=== PATIENT | male | born 1940 | race Caucasian/White ===

== ENCOUNTER → 2017-02-21 | Outpatient (CLI) | payer MEDICARE ==
[2014-05-16 12:59] VITALS: BP 135/72
[~2017-02-21] MED LIST: AMLO10TA2 PO; ASPI-482 PO; CHOL100017 PO; CITA40TA5 PO; CYAN10002 IM; DOCU100C28 PO; HYDR-2762 PO; Hydrocodone/Acetaminophen PO; LISI-334 PO; LOVA20TA2 PO; METF850T2 PO; PREG150C PO; TAMS0.4C2 PO
--- NOTE | 2017-02-21 13:51 | KCIC ---
History: Left shoulder pain and limited range of motion for 2 weeks. Comparison: None. Findings: AP external rotation and AP internal rotation views of the left shoulder. Evaluation for acute traumatic injury is limited by lack of 3rd view. No acute fracture or dislocation is identified. Mild acromioclavicular and glenohumeral degeneration is seen. Portions of pacemaker can be seen. Impression: Mild acromioclavicular and glenohumeral degeneration. Electronically signed by: Kartik Mejias MD (02/21/2017 1:48 PM) [place] [id number]
--- NOTE | 2017-02-21 13:54 | KCIC ---
History: Acute pain in left elbow. Comparison: None. Findings: AP and angulated lateral view of the left elbow. Evaluation is significantly limited secondary to lack of 3rd view as well as the angulation of the lateral view; additionally, the lateral view is not in typical 90 degree flexion. No displaced fracture is identified. No dislocation is appreciated. Evaluation for joint effusion is limited. Triceps tendon insertional enthesophyte is present. There is evidence of elbow joint degeneration with marginal osteophyte formation. Impression: 1. Limited examination. 2. No convincing acute osseous traumatic injury identified. 3. Degeneration. Electronically signed by: Kartik Mejias MD (02/21/2017 1:51 PM) [id number]
== END | disposition home or self-care (01) ==
LOC: KCIC 13:03
PROVIDERS: ATTEND Family Medicine
DX: M19.012 Primary osteoarthritis, left shoulder (principal); M19.022 Primary osteoarthritis, left elbow
CPT/HCPCS: 73030; 73070

== ENCOUNTER 2017-12-26 06:53 | Outpatient (CLI) | payer MEDICARE ==
[~2017-12-26] VITALS: Ht 188 cm; Wt 112.5 kg
[2017-12-26] VITALS (10 sets, daily range): BP systolic 114–147; BP diastolic 63–86
[~2017-12-26 06:53] MED LIST changes: -AMLO10TA2 PO; +AMLO10TA6 PO; -METF850T2 PO; +METF850T8 PO
[2017-12-26] MEDS ORDERED: 0.9 % SODIUM CHLORIDE 10 ML DISP.SYRIN. IV PRN (07:00)
[2017-12-26] MEDS ORDERED: LIDOCAINE 1% Multi-Dose 50 ML VIAL. ONE (07:07)
[2017-12-26] MEDS ORDERED: IODIXANOL 320 MG/ML 100 ML VIAL. ONE (07:07)
[2017-12-26] MEDS ORDERED: IV 1/2 NORMAL SALINE 1,000 ML IV SCH ×2 (07:16→09:08)
[2017-12-26] MEDS ORDERED: MAGN200T7 PO (07:29)
[2017-12-26] MEDS ORDERED: SOTA80TA48 PO (07:29)
[2017-12-26] MEDS ORDERED: RIVA15TA PO (07:29)
[2017-12-26] MEDS ORDERED: AMLO2.5T3 PO (07:29)
[2017-12-26 07:34] LABS: HEMATOCRIT 42.5 % (39.0-53.0); HEMOGLOBIN 14.4 g/dL (13.0-17.5); RED BLOOD COUNT 4.75 x10^6/uL (4.30-5.70); RED CELL DISTRIBUTION WIDTH 14.9 % (11.5-14.5); WHITE BLOOD COUNT 8.2 x10^3/uL (4.0-11.0)
[2017-12-26 07:38] LABS: CALCIUM 9.1 mg/dL (8.5-10.1); GFR 32.5; POTASSIUM 4.3 mmol/L (3.5-5.1)
[2017-12-26 08:11] LABS: PROTHROMBIN TIME PATIENT 12.8 SEC (11.7-14.0)
[2017-12-26] MEDS ORDERED: MIDAZOLAM HCL/PF 2 MG/2 ML VIAL. ONE (08:17)
[2017-12-26] MEDS ORDERED: fentaNYL PF VIAL 100 MCG/2 ML VIAL ONE (08:17)
[2017-12-26] MEDS ORDERED: LIDOCAINE 1% Multi-Dose 50 ML VIAL. INJ ONE (09:00)
[2017-12-26] MEDS ORDERED: MIDAZOLAM HCL/PF 2 MG/2 ML VIAL. IV ONE (09:00)
[2017-12-26] MEDS ORDERED: fentaNYL PF VIAL 100 MCG/2 ML VIAL IV ONE (09:00)
[2017-12-26] MEDS ORDERED: IODIXANOL 320 MG/ML 100 ML VIAL. IART ONE (09:00)
--- NOTE | 2017-12-26 09:08 | PDOC ---
MODERATE SEDATION ASSESSMENT RISKS/ALTERNATIVES Risks/Alternatives Risks and alternatives of this type of sedation and procedure discussed with: RISK/ALTERNATIVES: Patient H & P ON CHART H & P H & P on chart and reviewed for co-morbid conditions and appropriate labs. H&P ON CHART: Yes STATUS PREG STATUS ASSESSED: N/A MEDS/ALLERGIES REVIEWED Meds/Allergies Reviewed Medications and Allergies including time and route of recently administered narcotics and sedatives. MEDS/ALLERGIES REVIEWED: Yes ASA RATING ASA RATING: III AIRWAY ASSESSMENT Airway Assessment Airway patency, oral function limitations, presence of caps, crowns, dentures, partials, and ability to extend neck assessed. AIRWAY ASSESSMENT: Yes MALLAMPATI SCORE MALLAMPATI SCORE: II PRE-SEDATION ASSESSMENT PRE-SEDATION ASSESSMENT: Yes ADONIS BARRY MD Dec 26, 2017 09:08
[2017-12-26] MEDS ORDERED: NITROGLYCERIN SUBLINGUAL 0.4 MG BOTTLE OF 25. SL PRN (09:15)
--- NOTE | 2017-12-26 12:54 | CARD ---
MR#: [id number] Date of Study: 12/26/2017 Ordering Physician: ADONIS BARRY, Referring Physician: ADONIS BARRY Tech: RT Micky (R) APPROVED REPORT Patient StatusOUT-PATIENT Slunk Skinner: Guera Castaneda RT (R) Procedure(s) performed: Aortogram with bilateral lower extremity runoff Moderate sedation: 24 Minutes INDICATION FOR PROCEDURE The indication(s) include : Claudication and abnormal arterial duplex scan. PROCEDURE NARRATIVE After explaining the risks, benefits and alternative options, informed consent was obtained from olga lidia ent. Patient was brought to the cardiac [employer] and his left groin was prepped and draped in the usu al fashion. 20 mL of 2% lidocaine was infiltrated into the skin and subcutaneous tissues for local an esthesia. Arterial access was obtained in the left common femoral artery and 5 [place] sheath was inse rted. 5 [place] pigtail catheter was used to perform aortogram with bilateral lower extremity runoff. Contrast injections were performed through the sheath in the left groin for better visualization of l eft below the knee vessels. Patient tolerated the procedure well. Hemostasis in the left groin was ac hieved using mynx closure device. There were no immediate complications. FINDINGS 1. No significant stenosis involving the distal descending aorta 2. No significant stenosis involving bilateral common and external iliac arteries 3. No significant stenosis involving bilateral common femoral and superficial femoral arteries 4. No significant stenosis involving bilateral popliteal arteries. 5. There is three vessel runoff bilaterally. The right anterior tibial artery showed tandem 90% sten oses in the proximal to midsegment. The left anterior tibial artery showed 90% stenosis in the proxim al and mid segments. Conclusion Below the knee peripheral artery disease involving bilateral anterior tibial arteries as described ab ove without any major vascular stenosis. Recommendations Vascular risk factor modification and regular exercise regimen Signed by : Adonis Barry, Electronically Approved : 12/26/2017 12:53:34
== END 2017-12-26 13:38 | disposition home or self-care (01) ==
LOC: CCL 06:53
PROVIDERS: ATTEND Internal Medicine Cardiovascular Disease
DX: I70.213 Atherosclerosis of native arteries of extremities with intermittent claudication, bilateral legs (principal); Z88.0 Allergy status to penicillin; I25.10 Atherosclerotic heart disease of native coronary artery without angina pectoris; I49.5 Sick sinus syndrome; I48.91 Unspecified atrial fibrillation; Z85.828 Personal history of other malignant neoplasm of skin; I12.9 Hypertensive chronic kidney disease with stage 1 through stage 4 chronic kidney disease, or unspecified chronic kidney disease; E11.22 Type 2 diabetes mellitus with diabetic chronic kidney disease; N18.9 Chronic kidney disease, unspecified; Z96.651 Presence of right artificial knee joint; N40.0 Benign prostatic hyperplasia without lower urinary tract symptoms; Z95.5 Presence of coronary angioplasty implant and graft; Z98.890 Other specified postprocedural states; Z95.0 Presence of cardiac pacemaker; Z98.42 Cataract extraction status, left eye; Z98.41 Cataract extraction status, right eye; Z96.1 Presence of intraocular lens; Z79.899 Other long term (current) drug therapy; Z79.84 Long term (current) use of oral hypoglycemic drugs
CPT/HCPCS: 36200; 36415; 75630; 80048; 85027; 85610; 99152; 99153; C1713; C1769; C1892; J1644; J2250; J3010; Q9967; G0269

== ENCOUNTER 2018-06-05 13:11 | Inpatient (IN) | payer MEDICARE ==
[~2018-06-05] VITALS: Ht 193 cm; Wt 119.5 kg
[~2018-06-05 13:11] MED LIST changes: -AMLO10TA6 PO; +AMLO10TA8 PO; +AMLO2.5T5 PO; -HYDR-2762 PO; +HYDR-2765 PO; +MAGN200T7 PO; +RIVA15TA PO; +SOTA80TA48 PO
[2018-06-05 14:15] LABS: BASO % 1 % (0-3); EOS # 0.3 x10^3/uL (0.0-0.7); EOS % 3 % (0-3); HEMATOCRIT 46.4 % (39.0-53.0); HEMOGLOBIN 15.2 g/dL (13.0-17.5); LYMPH # 1.3 x10^3/uL (1.0-4.8); LYMPH % 16 % (24-48); MEAN CORPUSCULAR HEMOGLOBIN 29 pg (25-35); MEAN CORPUSCULAR HGB CONC 33 g/dL (31-37); MEAN CORPUSCULAR VOLUME 88 fL (79-100); MONO # 0.8 x10^3/uL (0.0-1.1); MONO % 9 % (0-9); NEUT # 6.1 x10^3uL (1.8-7.7); NEUT % 72 % (31-73); PLATELET COUNT 210 x10^3/uL (140-400); RED BLOOD COUNT 5.25 x10^6/uL (4.30-5.70); RED CELL DISTRIBUTION WIDTH 13.6 % (11.5-14.5); WHITE BLOOD COUNT 8.5 x10^3/uL (4.0-11.0)
--- NOTE | 2018-06-05 14:20 | PHYS DOC ---
Past Medical History Past Medical History: A-Fib, CAD Past Surgical History: Pacemaker Additional Past Surgical Histo: PTCA Alcohol Use: None Adult General Chief Complaint Chief Complaint: ABDOMINAL PAIN HPI HPI Patient is a 77-year-old male who presents to the emergency department for evaluation of abdominal discomfort, and abdominal bloating and distention. He states he had some vomiting on Monday night, which progressed to diarrhea, which was intense Monday, and Monday. He states he began feeling better, but not completely resolved, with regard to his diarrhea, yesterday afternoon and today. However he began experiencing abdominal pain and bloating over the past 4 hours. Other than his initial onset of symptoms on Monday he has not had any vomiting. He has not had any black or bloody stools, and denies any recent travel or antibiotic use. There are no alleviating or exacerbating factors to his symptoms otherwise. Review of Systems Review of Systems Constitutional: Denies fever or chills [] Eyes: Denies change in visual acuity, redness, or eye pain [] HENT: Denies nasal congestion or sore throat [] Respiratory: Denies cough or shortness of breath [] Cardiovascular: The patient denies any shortness of breath, chest pain, palpitations, or orthopnea [] GI: No additional information not addressed in HPI [] : Denies dysuria or hematuria [] Musculoskeletal: Denies back pain or joint pain [] Integument: Denies rash or skin lesions [] Neurologic: Denies headache, focal weakness or sensory changes [] Endocrine: Denies polyuria or polydipsia [] All other systems were reviewed and found to be within normal limits, except as documented in this note. Current Medications Current Medications Current Medications Medications (Trade) Dose Ordered Sig/Gerardo Start Time Stop Time Status Last Admin Dose Admin Dextrose/Lactated Ringer's 1,000 ml @ 125 mls/hr 1X ONCE 06/05/18 16:00 06/05/18 23:59 Sodium Chloride 500 ml @ 500 mls/hr 1X ONCE 06/05/18 14:45 06/05/18 15:44 DC 06/05/18 14:47 500 MLS/HR Allergies Allergies Allergies Coded Allergies Type Severity Reaction Last Updated Verified Penicillins Allergy Intermediate Swelling 05/14/14 Yes Physical Exam Physical Exam PHYSICAL EXAM: CONSTITUTIONAL: Well developed, well nourished HEAD: normocephalic, atraumatic EENT: PERRL, EOMI. Conjunctivae normal color, sclerae non-icteric; moist mucous membranes. NECK: Supple, non-tender; no meningismus. LUNGS: Lungs CTA, breathing even and unlabored. Normal air movement. HEART: Regular rate and rhythm, no murmur CHEST: No deformity; non-tender ABDOMEN: The abdomen is soft, and mildly distended, with diffuse tenderness to palpation, and somewhat high-pitched bowel sounds, which might be consistent with a bowel obstruction, there is no rebound or guarding, no masses or bruits. EXTREM: Normal ROM; no deformity, no calf tenderness. Normal pulses palpable in all extremities. There is no pedal edema. SKIN: No rash; no diaphoresis NEURO: Alert; normal speech and cognition; CN's grossly intact; strength grossly intact without focal deficit. BACK: No CVA TTP. Current Patient Data Vital Signs Vital Signs Date Time Temp Pulse Resp B/P (MAP) Pulse Ox O2 Delivery O2 Flow Rate FiO2 06/05/18 13:50 97.9 60 18 162/80 (107) 96 Room Air 97.9 Lab Values Laboratory Tests Test 06/05/18 14:03 White Blood Count 8.5 x10^3/uL (4.0-11.0) Red Blood Count 5.25 x10^6/uL (4.30-5.70) Hemoglobin 15.2 g/dL (13.0-17.5) Hematocrit 46.4 % (39.0-53.0) Mean Corpuscular Volume 88 fL (79-100) Mean Corpuscular Hemoglobin 29 pg (25-35) Mean Corpuscular Hemoglobin Concent 33 g/dL (31-37) Red Cell Distribution Width 13.6 % (11.5-14.5) Platelet Count 210 x10^3/uL (140-400) Neutrophils (%) (Auto) 72 % (31-73) Lymphocytes (%) (Auto) 16 % (24-48) L Monocytes (%) (Auto) 9 % (0-9) Eosinophils (%) (Auto) 3 % (0-3) Basophils (%) (Auto) 1 % (0-3) Neutrophils # (Auto) 6.1 x10^3uL (1.8-7.7) Lymphocytes # (Auto) 1.3 x10^3/uL (1.0-4.8) Monocytes # (Auto) 0.8 x10^3/uL (0.0-1.1) Eosinophils # (Auto) 0.3 x10^3/uL (0.0-0.7) Basophils # (Auto) 0.0 x10^3/uL (0.0-0.2) Prothrombin Time 21.2 SEC (11.7-14.0) H Prothrombin Time INR 1.9 (0.8-1.1) H PTT 32 SEC (24-38) Sodium Level 137 mmol/L (136-145) Potassium Level 4.4 mmol/L (3.5-5.1) Chloride Level 100 mmol/L (98-107) Carbon Dioxide Level 26 mmol/L (21-32) Anion Gap 11 (6-14) Blood Urea Nitrogen 24 mg/dL (8-26) Creatinine 1.9 mg/dL (0.7-1.3) H Estimated GFR (Cockcroft-Gault) 34.5 BUN/Creatinine Ratio 13 (6-20) Glucose Level 230 mg/dL (70-99) H Lactic Acid Level 1.7 mmol/L (0.4-2.0) Calcium Level 8.6 mg/dL (8.5-10.1) Total Bilirubin 0.7 mg/dL (0.2-1.0) Aspartate Amino Transferase (AST) 19 U/L (15-37) Alanine Aminotransferase (ALT) 20 U/L (16-63) Alkaline Phosphatase 112 U/L (46-116) Total Protein 6.7 g/dL (6.4-8.2) Albumin 2.8 g/dL (3.4-5.0) L Albumin/Globulin Ratio 0.7 (1.0-1.7) L Lipase 92 U/L (73-393) Laboratory Tests 06/05/18 14:03 Laboratory Tests 06/05/18 14:03 EKG EKG [Atrial paced rhythm at a rate of 60 beats for minute, left axis deviation, normal intervals. There are no acute ischemic ST/T changes.] Radiology/Procedures Radiology/Procedures [PROCEDURE: CT ABDOMEN PELVIS WO CONTRAST PQRS Compliance Statement: One or more of the following individualized dose reduction techniques were utilized for this examination: 1. Automated exposure control 2. Adjustment of the mA and/or kV according to patient size 3. Use of iterative reconstruction technique CT ABDOMEN PELVIS WO CONTRAST Clinical Indication: abd pain, bloating, possible SBO Comparison: None. Technique: Helical CT imaging of the abdomen and pelvis is performed without IV or oral contrast. Findings: Evaluation of solid organs and bowel is limited without oral and IV contrast, decreasing sensitivity for detection of pathology. Cardiac pacer wires are partially seen. Cardiac size normal. Calcified granuloma posterior right lower lobe. Mainly in the periphery of the bilateral lung bases there are scattered reticular nodular opacities. There is no consolidation. The liver, gallbladder, spleen, pancreas, adrenal glands, and abdominal aorta caliber are normal. Kidneys are atrophic. No hydronephrosis. Stomach unremarkable. Mid small bowel is moderately dilated and air and fluid-filled. Mild induration of the associated mesentery. Distal small bowel is relatively normal caliber. Point of transition appears to involve the lower central abdomen, coronal image 30. Adhesions or an internal hernia are considerations. There is no colon wall thickening. The appendix is normal. No abdominal adenopathy. Urinary bladder is not well distended, otherwise normal. Prostate is enlarged. No pelvic free fluid. Degenerative arthropathy of the hips. Degenerative spondylosis of the lumbar spine. IMPRESSION: 1. Mid small bowel obstruction as described above. 2. Scattered reticular nodular opacities mainly in the periphery of the bilateral lung bases, suggestive of nonspecific bronchiolitis. 3. Prostate is enlarged.] Course & Med Decision Making Course & Med Decision Making Pertinent Labs and Imaging studies reviewed. (See chart for details) [4:10 PM: The patient's condition remained stable. He has had no vomiting in the emergency department. He has had no prior abdominal surgeries, raising the possibility of an internal hernia. I discussed case with Gen. surgery on-call, who will evaluate the patient and Dr. Frazier, on-call for the patient's PCP will admit the patient.] Dragon Disclaimer Dragon Disclaimer This electronic medical record was generated, in whole or in part, using a voice recognition dictation system. Departure Departure Impression: Primary Impression: Small bowel obstruction Disposition: ADMITTED INPATIENT Admitting Physician: Sari Frazier Condition: STABLE Referrals: Fredy PYLE MD (PCP) KELLY SAEZ MD Jun 05, 2018 14:20
[2018-06-05 14:27] LABS: PROTHROMBIN TIME PATIENT 21.2 SEC (11.7-14.0)
[2018-06-05 14:30] LABS: CALCIUM 8.6 mg/dL (8.5-10.1); CREATININE 1.9 mg/dL (0.7-1.3); GFR 34.5; POTASSIUM 4.4 mmol/L (3.5-5.1)
[2018-06-05 14:34] LABS: ALBUMIN 2.8 g/dL (3.4-5.0); ALBUMIN/GLOBULIN RATIO 0.7 (1.0-1.7); TOTAL BILIRUBIN 0.7 mg/dL (0.2-1.0); TOTAL PROTEIN 6.7 g/dL (6.4-8.2)
[2018-06-05] MEDS ORDERED: IV NORMAL SALINE 500ML BAG 500 ML IV ONE (14:45)
--- NOTE | 2018-06-05 14:52 | EKG ---
[facility] [address] [place] [address] Test Date: 2018-06-05 Test Time: 14:14:15 Pat Name: CHRISTOPHER BALLARD Department: Room: Gender: M Pipelayer: : 1940 Requested By: KELLY SAEZ Order Number: [id number] Reading MD: Andrés Dunbar MD Measurements Intervals Farrell Rate: 60 P: -62 WY: 164 QRS: -24 QRSD: 74 T: 42 QT: 418 QTc: 422 Interpretive Statements PROBABLE SINUS RHYTHM LOW VOLTAGE NON-SPECIFIC ST/T CHANGES Electronically Signed On 06-14-2018 9:29:59 CDT by Andrés Dunbar MD
--- NOTE | 2018-06-05 15:16 | RAD ---
PQRS Compliance Statement: One or more of the following individualized dose reduction techniques were utilized for this examination: 1. Automated exposure control 2. Adjustment of the mA and/or kV according to patient size 3. Use of iterative reconstruction technique CT ABDOMEN PELVIS WO CONTRAST Clinical Indication: abd pain, bloating, possible SBO Comparison: None. Technique: Helical CT imaging of the abdomen and pelvis is performed without IV or oral contrast. Findings: Evaluation of solid organs and bowel is limited without oral and IV contrast, decreasing sensitivity for detection of pathology. Cardiac pacer wires are partially seen. Cardiac size normal. Calcified granuloma posterior right lower lobe. Mainly in the periphery of the bilateral lung bases there are scattered reticular nodular opacities. There is no consolidation. The liver, gallbladder, spleen, pancreas, adrenal glands, and abdominal aorta caliber are normal. Kidneys are atrophic. No hydronephrosis. Stomach unremarkable. Mid small bowel is moderately dilated and air and fluid-filled. Mild induration of the associated mesentery. Distal small bowel is relatively normal caliber. Point of transition appears to involve the lower central abdomen, coronal image 30. Adhesions or an internal hernia are considerations. There is no colon wall thickening. The appendix is normal. No abdominal adenopathy. Urinary bladder is not well distended, otherwise normal. Prostate is enlarged. No pelvic free fluid. Degenerative arthropathy of the hips. Degenerative spondylosis of the lumbar spine. IMPRESSION: 1. Mid small bowel obstruction as described above. 2. Scattered reticular nodular opacities mainly in the periphery of the bilateral lung bases, suggestive of nonspecific bronchiolitis. 3. Prostate is enlarged. Electronically signed by: Roger Cat MD (06/05/2018 3:13 PM) [id number]
[2018-06-05] MEDS ORDERED: IV DEXTROSE 5%-LACT RINGERS 1,000 ML IV ONE (16:00)
[2018-06-05 16:43] LABS: BILIRUBIN,URINE SMALL (NEG); CLARITY,URINE CLOUDY; COLOR,URINE AMBER; NITRITE,URINE NEGATIVE (NEG); PROTEIN,URINE NEGATIVE (NEG-TRACE)
[2018-06-05 16:53] LABS: SQUAMOUS EPITHELIAL CELL,UR FEW /LPF
[2018-06-05 16:54] LABS: HYALINE CASTS, URINE MANY /HPF
[2018-06-05 16:55] LABS: BACTERIA,URINE FEW /HPF (0-FEW); RBC,URINE 0 /HPF (0-2); WBC,URINE 20-40 /HPF (0-4)
[2018-06-05 18:00] VITALS: BP 160/68
[2018-06-05] MEDS ORDERED: DEXTROSE 50% 25 GM / 50ML DISP.SYRIN. IV PRN (21:45)
[2018-06-05] MEDS: IV NORMAL SALINE 1000ML BAG 1,000 ML IV SCH (22:42)
[2018-06-05 23:00] VITALS: BP 138/61
[2018-06-06 03:00] VITALS: BP 140/72
--- NOTE | 2018-06-06 06:40 | NUR ---
The patient, CHRISTOPHER BALLARD, 77 y/o, M was admitted by THIERNO ASCENCIO MD. Pt. was admitted to floor before this nurse came into shift. Assessment and admission questions done at 1999. Pt. was given written information regarding hospital policies, unit procedures and contact persons. Bag of clothing left with pt. in room. Call light within reach, bed low. Will continue to monitor.
[2018-06-06 07:31] VITALS: BP 115/61
[2018-06-06] MEDS: INSULIN LISPRO 300 UNITS/3 ML INSULN.PEN. SQ SCH ×3 (08:00→17:13)
--- NOTE | 2018-06-06 08:14 | PDOC1 ---
History and Physical Date of Admission Date of Admission 06/05/18 Identification/Chief Complaint Chief Complaint Abdominal pain Source Source: Patient History of Present Illness History of Present Illness Pt says that he wasn't really feeling good all week last week. Monday night had a little bit of nausea. Went to the bathroom and felt like he was going to throw up, ended up having diarrhea which lasted all weekend. Monday was feeling a little bit better. Got a fish sandwich from [employer] and 2 hours later pt started having significant abdominal pain. Yesterday pt was supposed to get his pacemaker interrogated but he felt entirely too weak. Called the office and was told to come to the ER for evaluation. Pt's imaging showed SBO. Pt says that he is feeling better today. 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 Last BM was on Monday. Passed a little bit of gas last night. Still feeling pretty weak, but feels that he will be able to go home once discharged. Uses a walker at home. Past Medical History Cardiovascular: AFIB, CAD, HTN, Hyperlipidemia Pulmonary: No pertinent hx GI: No pertinent hx Heme/Onc: No pertinent hx Hepatobiliary: No pertinent hx Psych: No pertinent hx Rheumatologic: No pertinent hx Infectious disease: No pertinent hx ENT: No pertinent hx Renal/: Chronic renal insuff, Benign prostatic enlarg. Endocrine: Diabetes Dermatology: No pertinent hx Past Surgical History Past Surgical History: Pacemaker, Cataract Removal, Total knee replacement, Other (stent placement, laminectomy, lipoma excision) Family History Family History: Cancer Social History Smoke: No ALCOHOL: none Drugs: None Current Problem List Problem List Problems Medical Problems: (1) Small bowel obstruction Status: Acute Current Medications Current Medications Current Medications Medications (Trade) Dose Ordered Sig/Gerardo Start Time Stop Time Status Last Admin Dose Admin Dextrose (Dextrose 50%-Water Syringe) 12.5 gm PRN Q15MIN PRN 06/05/18 21:45 Dextrose/Lactated Ringer's 1,000 ml @ 125 mls/hr 1X ONCE 06/05/18 16:00 06/05/18 23:59 DC 06/05/18 16:48 125 MLS/HR Insulin Human Lispro (HumaLOG) 0-5 UNITS TIDWMEALS 06/06/18 08:00 Sodium Chloride 1,000 ml @ 80 mls/hr [id number] 06/05/18 20:30 06/05/18 22:42 80 MLS/HR Allergies Allergies Allergies Coded Allergies Type Severity Reaction Last Updated Verified Penicillins Allergy Intermediate Swelling 05/14/14 Yes ROS Review of System CONSTITUTIONAL: No fever or chills EYES: No recent changes SKIN: No rash or itching CARDIOVASCULAR: No chest pain, syncope, palpitations, or edema RESPIRATORY: No SOB or cough GASTROINTESTINAL: see HPI NEUROLOGICAL: No headaches or weakness ENDOCRINE: No cold or heat intolerance GENITOURINARY: No urgency or frequency of urination MUSCULOSKELETAL: No back pain or joint pain LYMPHATICS: No enlarged lymph nodes PSYCHIATRIC: No anxiety or depression Physical Exam Physical Exam GEN.: No apparent distress. Alert and oriented. HEENT: Head is normocephalic, atraumatic NECK: Supple. LUNGS: Clear to auscultation. HEART: irregularly irregular, S1, S2 present. Peripheral pulses intact ABDOMEN: Soft, mild tenderness throughout, distended. Positive bowel sounds. EXTREMITIES: Without any cyanosis. NEUROLOGIC: Normal speech, normal tone PSYCHIATRIC: Normal affect, normal mood. SKIN: No ulcerations Vitals Vitals Vital Signs Date Time Temp Pulse Resp B/P (MAP) Pulse Ox O2 Delivery O2 Flow Rate FiO2 06/06/18 07:31 98.3 61 20 115/61 (79) 96 Room Air 98.3 Labs Labs Laboratory Tests Test 06/05/18 14:03 06/05/18 16:30 06/05/18 21:20 White Blood Count 8.5 x10^3/uL (4.0-11.0) Red Blood Count 5.25 x10^6/uL (4.30-5.70) Hemoglobin 15.2 g/dL (13.0-17.5) Hematocrit 46.4 % (39.0-53.0) Mean Corpuscular Volume 88 fL (79-100) Mean Corpuscular Hemoglobin 29 pg (25-35) Mean Corpuscular Hemoglobin Concent 33 g/dL (31-37) Red Cell Distribution Width 13.6 % (11.5-14.5) Platelet Count 210 x10^3/uL (140-400) Neutrophils (%) (Auto) 72 % (31-73) Lymphocytes (%) (Auto) 16 % (24-48) Monocytes (%) (Auto) 9 % (0-9) Eosinophils (%) (Auto) 3 % (0-3) Basophils (%) (Auto) 1 % (0-3) Neutrophils # (Auto) 6.1 x10^3uL (1.8-7.7) Lymphocytes # (Auto) 1.3 x10^3/uL (1.0-4.8) Monocytes # (Auto) 0.8 x10^3/uL (0.0-1.1) Eosinophils # (Auto) 0.3 x10^3/uL (0.0-0.7) Basophils # (Auto) 0.0 x10^3/uL (0.0-0.2) Prothrombin Time 21.2 SEC (11.7-14.0) Prothromb Time International Ratio 1.9 (0.8-1.1) Activated Partial Thromboplast Time 32 SEC (24-38) Sodium Level 137 mmol/L (136-145) Potassium Level 4.4 mmol/L (3.5-5.1) Chloride Level 100 mmol/L (98-107) Carbon Dioxide Level 26 mmol/L (21-32) Anion Gap 11 (6-14) Blood Urea Nitrogen 24 mg/dL (8-26) Creatinine 1.9 mg/dL (0.7-1.3) Estimated GFR (Cockcroft-Gault) 34.5 BUN/Creatinine Ratio 13 (6-20) Glucose Level 230 mg/dL (70-99) Lactic Acid Level 1.7 mmol/L (0.4-2.0) Calcium Level 8.6 mg/dL (8.5-10.1) Total Bilirubin 0.7 mg/dL (0.2-1.0) Aspartate Amino Transf (AST/SGOT) 19 U/L (15-37) Alanine Aminotransferase (ALT/SGPT) 20 U/L (16-63) Alkaline Phosphatase 112 U/L (46-116) Total Protein 6.7 g/dL (6.4-8.2) Albumin 2.8 g/dL (3.4-5.0) Albumin/Globulin Ratio 0.7 (1.0-1.7) Lipase 92 U/L (73-393) Urine Collection Type Unknown Urine Color Katya Urine Clarity Cloudy Urine pH 5.0 Urine Specific [place] 1.025 Urine Protein Negative mg/dL (NEG-TRACE) Urine Glucose (UA) 100 mg/dL (NEG) Urine Ketones (Stick) Trace mg/dL (NEG) Urine Blood Negative (NEG) Urine Nitrite Negative (NEG) Urine Bilirubin Small (NEG) Urine Urobilinogen Dipstick 1.0 mg/dL (0.2 mg/dL) Urine Leukocyte Esterase Small (NEG) Urine RBC 0 /HPF (0-2) Urine WBC 20-40 /HPF (0-4) Urine Squamous Epithelial Cells Few /LPF Urine Bacteria Few /HPF (0-FEW) Urine Hyaline Casts Many /HPF Urine Mucus Marked /LPF Glucose (Fingerstick) 226 mg/dL (70-99) Laboratory Tests Test 06/05/18 14:03 06/05/18 16:30 06/05/18 21:20 White Blood Count 8.5 x10^3/uL (4.0-11.0) Red Blood Count 5.25 x10^6/uL (4.30-5.70) Hemoglobin 15.2 g/dL (13.0-17.5) Hematocrit 46.4 % (39.0-53.0) Mean Corpuscular Volume 88 fL (79-100) Mean Corpuscular Hemoglobin 29 pg (25-35) Mean Corpuscular Hemoglobin Concent 33 g/dL (31-37) Red Cell Distribution Width 13.6 % (11.5-14.5) Platelet Count 210 x10^3/uL (140-400) Neutrophils (%) (Auto) 72 % (31-73) Lymphocytes (%) (Auto) 16 % (24-48) Monocytes (%) (Auto) 9 % (0-9) Eosinophils (%) (Auto) 3 % (0-3) Basophils (%) (Auto) 1 % (0-3) Neutrophils # (Auto) 6.1 x10^3uL (1.8-7.7) Lymphocytes # (Auto) 1.3 x10^3/uL (1.0-4.8) Monocytes # (Auto) 0.8 x10^3/uL (0.0-1.1) Eosinophils # (Auto) 0.3 x10^3/uL (0.0-0.7) Basophils # (Auto) 0.0 x10^3/uL (0.0-0.2) Prothrombin Time 21.2 SEC (11.7-14.0) Prothromb Time International Ratio 1.9 (0.8-1.1) Activated Partial Thromboplast Time 32 SEC (24-38) Sodium Level 137 mmol/L (136-145) Potassium Level 4.4 mmol/L (3.5-5.1) Chloride Level 100 mmol/L (98-107) Carbon Dioxide Level 26 mmol/L (21-32) Anion Gap 11 (6-14) Blood Urea Nitrogen 24 mg/dL (8-26) Creatinine 1.9 mg/dL (0.7-1.3) Estimated GFR (Cockcroft-Gault) 34.5 BUN/Creatinine Ratio 13 (6-20) Glucose Level 230 mg/dL (70-99) Lactic Acid Level 1.7 mmol/L (0.4-2.0) Calcium Level 8.6 mg/dL (8.5-10.1) Total Bilirubin 0.7 mg/dL (0.2-1.0) Aspartate Amino Transf (AST/SGOT) 19 U/L (15-37) Alanine Aminotransferase (ALT/SGPT) 20 U/L (16-63) Alkaline Phosphatase 112 U/L (46-116) Total Protein 6.7 g/dL (6.4-8.2) Albumin 2.8 g/dL (3.4-5.0) Albumin/Globulin Ratio 0.7 (1.0-1.7) Lipase 92 U/L (73-393) Urine Collection Type Unknown Urine Color Katya Urine Clarity Cloudy Urine pH 5.0 Urine Specific [place] 1.025 Urine Protein Negative mg/dL (NEG-TRACE) Urine Glucose (UA) 100 mg/dL (NEG) Urine Ketones (Stick) Trace mg/dL (NEG) Urine Blood Negative (NEG) Urine Nitrite Negative (NEG) Urine Bilirubin Small (NEG) Urine Urobilinogen Dipstick 1.0 mg/dL (0.2 mg/dL) Urine Leukocyte Esterase Small (NEG) Urine RBC 0 /HPF (0-2) Urine WBC 20-40 /HPF (0-4) Urine Squamous Epithelial Cells Few /LPF Urine Bacteria Few /HPF (0-FEW) Urine Hyaline Casts Many /HPF Urine Mucus Marked /LPF Glucose (Fingerstick) 226 mg/dL (70-99) VTE Prophylaxis Ordered VTE Prophylaxis Devices: No VTE Pharmacological Prophylaxi: Yes Assessment/Plan Assessment/Plan Pt is a 77yo CM admitted for SBO 1)SBO- currently NPO. Pt improving, will advance to [facility]. 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 Pt's Metformin was stopped several months ago. Has SSI available currently. 7)Acute on CKD- Cr increased from last available Cr in hospital. Will review clinic records as well. Receiving IVF hydration 8)BPH- pt continued on flomax 9)Abnormal U/A- urine culture pending. Will start pt on Macrobid 10)Abnormal lung findings on CT- suggests bronchiolitis but pt has not been having any respiratory symptoms. Will have pt f/u with Dr. Hodge for this 11)PEM- moderate THIERNO ASCENCIO MD Jun 06, 2018 08:14
[2018-06-06] MEDS ORDERED: NITROFURANTOIN MONOHYD/M-CRYST 100 MG CAPSULE. PO SCH (09:00)
[2018-06-06] MEDS: DOCUSATE SODIUM 100 MG CAPSULE. PO SCH (09:23)
[2018-06-06] MEDS: SOTALOL 80 MG TABLET. PO SCH (09:25)
[2018-06-06] MEDS: amLODIPine BESYLATE 5 MG TABLET PO SCH (09:25)
[2018-06-06] MEDS: IV NORMAL SALINE 1000ML BAG 1,000 ML IV SCH ×2 (09:26→21:06)
--- NOTE | 2018-06-06 09:33 | RAD ---
Abdomen, 2 views, 06/06/2018: HISTORY: Small bowel obstruction There is moderate gaseous distention of multiple small bowel loops in the central abdomen. A small amount of gas is present in nondilated colon. The findings suggest ongoing small bowel obstruction, similar to that seen on yesterday's CT study. No free air seen in the abdomen. There is no evidence of organomegaly. Prominent basilar lung markings may reflect fibrosis or infiltrate. Moderate multilevel degenerative changes are evident in the spine. IMPRESSION: Ongoing small bowel obstruction. Electronically signed by: Jorge Ritchie MD (06/06/2018 9:30 AM) [facility]
--- NOTE | 2018-06-06 09:38 | PDOC2 ---
CONSULT Date of Consult Date of Consult DATE: 06/06/18 TIME: 09:33 Reason for Consult Reason for Consult: Abdominal pain and distention Referring Physician Referring Physician: Freddie Identification/Chief Complaint Chief Complaint Abdominal pain and feeling bloated Source Source: Patient History of Present Illness Reason for Visit: 77-year-old male who developed diarrhea 4 days ago quite profuse for 2 days and on the third day no longer was having bowel movements felt much better. Then ate at [employer] and that evening developed abdominal bloating distention and pain denies any vomiting. Came to the emergency Department secondary to worsening abdominal pain. This morning he states is feeling a little better less distended has been passing gas no bowel movement still no vomiting. Past Medical History Cardiovascular: AFIB, CAD, HTN, Hyperlipidemia Pulmonary: No pertinent hx GI: No pertinent hx Heme/Onc: No pertinent hx Hepatobiliary: No pertinent hx Psych: No pertinent hx Rheumatologic: No pertinent hx Infectious disease: No pertinent hx ENT: No pertinent hx Renal/: Chronic renal insuff, Benign prostatic enlarg. Endocrine: Diabetes Dermatology: No pertinent hx Past Surgical History Past Surgical History: Pacemaker, Cataract Removal, Total knee replacement, Other (stent placement, laminectomy, lipoma excision) Family History Family History: Cancer Social History No ALCOHOL: none Drugs: None Current Problem List Problem List Problems Medical Problems: (1) Small bowel obstruction Status: Acute Current Medications Current Medications Current Medications Sodium Chloride 500 ml @ 500 mls/hr 1X ONCE IV Last administered on at 14:47; Start 06/05/18 at 14:45; Stop 06/05/18 at 15:44; Status DC Dextrose/Lactated Ringer's 1,000 ml @ 125 mls/hr 1X ONCE IV Last administered on 06/05/18at 16:48; Start 06/05/18 at 16:00; Stop 06/05/18 at 23:59 ; Status DC Sodium Chloride 1,000 ml @ 80 mls/hr [id number] IV Last administered on at 09:26; Start 06/05/18 at 20:30 Insulin Human Lispro (HumaLOG) 0-5 UNITS TIDWMEALS SQ ; Start 06/06/18 at 08:00 Dextrose (Dextrose 50%-Water Syringe) 12.5 gm PRN Q15MIN PRN IV SEE COMMENTS; Start 06/05/18 at 21:45 Docusate Sodium (Colace) 100 mg DAILY PO Last administered on 06/06/18at 09:23; Start 06/06/18 at 09:00 Rivaroxaban (Xarelto) 15 mg DAILYWSUP PO ; Start 06/06/18 at 17:00 Tamsulosin HCl (Flomax) 0.4 mg HS PO ; Start 06/06/18 at 21:00 Amlodipine Besylate (Norvasc) 2.5 mg DAILY PO Last administered on 06/06/18at 09 :25; Start 06/06/18 at 09:00 Atorvastatin Calcium (Lipitor) 10 mg QHS PO ; Start 06/06/18 at 21:00 Pregabalin (Lyrica) 150 mg QHS PO ; Start 06/06/18 at 21:00 Sotalol HCl (Betapace) 120 mg DAILY PO Last administered on 06/06/18at 09:25; Start 06/06/18 at 09:00 Nitrofurantoin Macrocrystals (Macrobid) 100 mg BID PO ; Start 06/06/18 at 09:00 ; Status UNV Info (Anti-Coagulation Monitoring By Pharmacy) 1 each PRN DAILY PRN MC SEE COMMENTS; Start 06/06/18 at 08:30 Trimethoprim/ Sulfamethoxazole (Bactrim Ds) 0.5 tab BID PO ; Start 06/06/18 at 10:00 Active Scripts Active Reported Sotalol (Sotalol Hcl) 80 Mg Tablet 120 Mg PO DAILY Mag-Oxide (Magnesium Oxide) 200 Mg Tablet 400 Mg PO BID Xarelto (Rivaroxaban) 15 Mg Tablet 15 Mg PO DAILY Amlodipine Besylate 2.5 Mg Tablet 2.5 Mg PO DAILY Docusate Sodium 100 Mg Capsule 100 Mg PO BID Cyanocobalamin Injection (Cyanocobalamin (Vitamin B-12)) 1,000 Mcg/1 Ml Vial 1 Ml IM QMONTH Not taken while in hosp. May resume at home as directed Vitamin D (Cholecalciferol (Vitamin D3)) 10,000 Unit Capsule 50,000 Unit PO WEEKLY Tamsulosin Hcl 0.4 Mg Cap.er.24h 1 Cap PO HS Last dose given: 05-15-14 9:00 p.m. Next dose due: tonight Lovastatin 20 Mg Tablet 1 Tab PO HS Last dose given: 05-15-14 Next dose due: tonight Lyrica (Pregabalin) 150 Mg Capsule 1 Cap PO HS Last dose given: 05-16-14 9:00 p.m. Next dose due: tonight Allergies Allergies: Coded Allergies: Penicillins (Verified Allergy, Intermediate, Swelling, 05/14/14) ROS Gastrointestinal: Yes Abdominal Pain, Yes Diarrhea Physical Exam General: Alert, Oriented X3, Cooperative, No acute distress HEENT: Atraumatic, PERRLA, EOMI Lungs: Clear to auscultation, Normal air movement Heart: Regular rate, No murmurs Abdomen: Soft, Other (hypoactive bowel sounds mildly distended nontender to palpation) Extremities: No edema Skin: No significant lesion Neuro: Normal speech Psych/Mental Status: Mental status NL Vitals VITALS Vital Signs Date Time Temp Pulse Resp B/P (MAP) Pulse Ox O2 Delivery O2 Flow Rate FiO2 06/06/18 09:25 61 115/61 06/06/18 07:31 98.3 20 96 Room Air 98.3 Labs Labs Laboratory Tests Test 06/05/18 14:03 06/05/18 16:30 06/05/18 21:20 06/06/18 08:09 White Blood Count 8.5 x10^3/uL (4.0-11.0) Red Blood Count 5.25 x10^6/uL (4.30-5.70) Hemoglobin 15.2 g/dL (13.0-17.5) Hematocrit 46.4 % (39.0-53.0) Mean Corpuscular Volume 88 fL (79-100) Mean Corpuscular Hemoglobin 29 pg (25-35) Mean Corpuscular Hemoglobin Concent 33 g/dL (31-37) Red Cell Distribution Width 13.6 % (11.5-14.5) Platelet Count 210 x10^3/uL (140-400) Neutrophils (%) (Auto) 72 % (31-73) Lymphocytes (%) (Auto) 16 % (24-48) Monocytes (%) (Auto) 9 % (0-9) Eosinophils (%) (Auto) 3 % (0-3) Basophils (%) (Auto) 1 % (0-3) Neutrophils # (Auto) 6.1 x10^3uL (1.8-7.7) Lymphocytes # (Auto) 1.3 x10^3/uL (1.0-4.8) Monocytes # (Auto) 0.8 x10^3/uL (0.0-1.1) Eosinophils # (Auto) 0.3 x10^3/uL (0.0-0.7) Basophils # (Auto) 0.0 x10^3/uL (0.0-0.2) Prothrombin Time 21.2 SEC (11.7-14.0) Prothromb Time International Ratio 1.9 (0.8-1.1) Activated Partial Thromboplast Time 32 SEC (24-38) Sodium Level 137 mmol/L (136-145) Potassium Level 4.4 mmol/L (3.5-5.1) Chloride Level 100 mmol/L (98-107) Carbon Dioxide Level 26 mmol/L (21-32) Anion Gap 11 (6-14) Blood Urea Nitrogen 24 mg/dL (8-26) Creatinine 1.9 mg/dL (0.7-1.3) Estimated GFR (Cockcroft-Gault) 34.5 BUN/Creatinine Ratio 13 (6-20) Glucose Level 230 mg/dL (70-99) Lactic Acid Level 1.7 mmol/L (0.4-2.0) Calcium Level 8.6 mg/dL (8.5-10.1) Total Bilirubin 0.7 mg/dL (0.2-1.0) Aspartate Amino Transf (AST/SGOT) 19 U/L (15-37) Alanine Aminotransferase (ALT/SGPT) 20 U/L (16-63) Alkaline Phosphatase 112 U/L (46-116) Total Protein 6.7 g/dL (6.4-8.2) Albumin 2.8 g/dL (3.4-5.0) Albumin/Globulin Ratio 0.7 (1.0-1.7) Lipase 92 U/L (73-393) Urine Collection Type Unknown Urine Color Katya Urine Clarity Cloudy Urine pH 5.0 Urine Specific [place] 1.025 Urine Protein Negative mg/dL (NEG-TRACE) Urine Glucose (UA) 100 mg/dL (NEG) Urine Ketones (Stick) Trace mg/dL (NEG) Urine Blood Negative (NEG) Urine Nitrite Negative (NEG) Urine Bilirubin Small (NEG) Urine Urobilinogen Dipstick 1.0 mg/dL (0.2 mg/dL) Urine Leukocyte Esterase Small (NEG) Urine RBC 0 /HPF (0-2) Urine WBC 20-40 /HPF (0-4) Urine Squamous Epithelial Cells Few /LPF Urine Bacteria Few /HPF (0-FEW) Urine Hyaline Casts Many /HPF Urine Mucus Marked /LPF Glucose (Fingerstick) 226 mg/dL (70-99) 174 mg/dL (70-99) Laboratory Tests Test 06/05/18 14:03 06/05/18 16:30 06/05/18 21:20 06/06/18 08:09 White Blood Count 8.5 x10^3/uL (4.0-11.0) Red Blood Count 5.25 x10^6/uL (4.30-5.70) Hemoglobin 15.2 g/dL (13.0-17.5) Hematocrit 46.4 % (39.0-53.0) Mean Corpuscular Volume 88 fL (79-100) Mean Corpuscular Hemoglobin 29 pg (25-35) Mean Corpuscular Hemoglobin Concent 33 g/dL (31-37) Red Cell Distribution Width 13.6 % (11.5-14.5) Platelet Count 210 x10^3/uL (140-400) Neutrophils (%) (Auto) 72 % (31-73) Lymphocytes (%) (Auto) 16 % (24-48) Monocytes (%) (Auto) 9 % (0-9) Eosinophils (%) (Auto) 3 % (0-3) Basophils (%) (Auto) 1 % (0-3) Neutrophils # (Auto) 6.1 x10^3uL (1.8-7.7) Lymphocytes # (Auto) 1.3 x10^3/uL (1.0-4.8) Monocytes # (Auto) 0.8 x10^3/uL (0.0-1.1) Eosinophils # (Auto) 0.3 x10^3/uL (0.0-0.7) Basophils # (Auto) 0.0 x10^3/uL (0.0-0.2) Prothrombin Time 21.2 SEC (11.7-14.0) Prothromb Time International Ratio 1.9 (0.8-1.1) Activated Partial Thromboplast Time 32 SEC (24-38) Sodium Level 137 mmol/L (136-145) Potassium Level 4.4 mmol/L (3.5-5.1) Chloride Level 100 mmol/L (98-107) Carbon Dioxide Level 26 mmol/L (21-32) Anion Gap 11 (6-14) Blood Urea Nitrogen 24 mg/dL (8-26) Creatinine 1.9 mg/dL (0.7-1.3) Estimated GFR (Cockcroft-Gault) 34.5 BUN/Creatinine Ratio 13 (6-20) Glucose Level 230 mg/dL (70-99) Lactic Acid Level 1.7 mmol/L (0.4-2.0) Calcium Level 8.6 mg/dL (8.5-10.1) Total Bilirubin 0.7 mg/dL (0.2-1.0) Aspartate Amino Transf (AST/SGOT) 19 U/L (15-37) Alanine Aminotransferase (ALT/SGPT) 20 U/L (16-63) Alkaline Phosphatase 112 U/L (46-116) Total Protein 6.7 g/dL (6.4-8.2) Albumin 2.8 g/dL (3.4-5.0) Albumin/Globulin Ratio 0.7 (1.0-1.7) Lipase 92 U/L (73-393) Urine Collection Type Unknown Urine Color Katya Urine Clarity Cloudy Urine pH 5.0 Urine Specific [place] 1.025 Urine Protein Negative mg/dL (NEG-TRACE) Urine Glucose (UA) 100 mg/dL (NEG) Urine Ketones (Stick) Trace mg/dL (NEG) Urine Blood Negative (NEG) Urine Nitrite Negative (NEG) Urine Bilirubin Small (NEG) Urine Urobilinogen Dipstick 1.0 mg/dL (0.2 mg/dL) Urine Leukocyte Esterase Small (NEG) Urine RBC 0 /HPF (0-2) Urine WBC 20-40 /HPF (0-4) Urine Squamous Epithelial Cells Few /LPF Urine Bacteria Few /HPF (0-FEW) Urine Hyaline Casts Many /HPF Urine Mucus Marked /LPF Glucose (Fingerstick) 226 mg/dL (70-99) 174 mg/dL (70-99) Images Images CT scan of his abdomen and pelvis showed dilated loops of small bowel consistent with a small bowel obstruction versus paralytic ileus Abdominal films this morning show again dilated loops of small bowel does have air in the rectum and colon Assessment/Plan Assessment/Plan Abdominal pain with radiologic evidence of small bowel obstruction versus paralytic ileus most likely viral enteritis Agree with conservative therapy of bowel rest IV hydration will follow repeat abdominal films in the a.m. BRENDON HILLIARD MD Jun 06, 2018 09:38
[2018-06-06] MEDS: SMZ/TMP 800/160MG TABLET. PO SCH ×2 (10:28→21:04)
[2018-06-06 11:16] VITALS: BP 141/71
[2018-06-06] MEDS: ANTI-COAG MONITOR BY PHARMACY. MC PRN (11:44)
--- NOTE | 2018-06-06 13:21 | NUR ---
SW following for discharge planning. Discussed with RN, pt is from home with . RN advised no SW needs at this time. SW will continue to follow.
[2018-06-06 15:07] VITALS: BP 159/73
[2018-06-06] MEDS: RIVAROXABAN 15 MG TABLET. PO SCH (17:12)
[2018-06-06 19:00] VITALS: BP 160/76
[2018-06-06] MEDS: ATORVASTATIN CALCIUM 10 MG TABLET. PO SCH (21:04)
[2018-06-06] MEDS: PREGABALIN 75 MG CAPSULE PO SCH (21:05)
[2018-06-06] MEDS: LACTOBACILLUS RHAMNOSUS GG 1 CAPSULE. PO SCH (21:05)
[2018-06-06] MEDS: TAMSULOSIN 0.4 MG CAP.ER.24H. PO SCH (21:05)
[2018-06-06 23:00] VITALS: BP 162/72
[2018-06-07 00:09] LABS: HEMOGLOBIN A1C 9.7 % (4.8-5.6)
[2018-06-07 03:00] VITALS: BP 159/83
[2018-06-07 05:45] LABS: CREATININE 1.6 mg/dL (0.7-1.3)
[2018-06-07 07:00] VITALS: BP 149/78
[2018-06-07] MEDS: INSULIN LISPRO 300 UNITS/3 ML INSULN.PEN. SQ SCH ×3 (08:00→17:22)
--- NOTE | 2018-06-07 08:28 | RAD ---
Abdomen, 2 views, 06/07/2018: HISTORY: Small bowel obstruction Comparison is made to a study from 06/06/2018. There is ongoing gaseous distention of small bowel loops, similar to that seen on yesterday's study. Gas in the transverse colon has increased slightly suggesting that the obstruction is incomplete. No free air is evident in the abdomen. There is no evidence organomegaly. IMPRESSION: Ongoing small bowel obstruction. Electronically signed by: Jorge Ritchie MD (06/07/2018 8:26 AM) [facility]
--- NOTE | 2018-06-07 08:39 | PDOC ---
CHERRY [employer]ONE [employer] 06/07/18 0839: SURGICAL PROGRESS NOTE Subjective he is taking some clears this AM reports flatus last night mild epigastric pain, much improved no emesis Vital Signs Vital Signs Date Time Temp Pulse Resp B/P (MAP) Pulse Ox O2 Delivery O2 Flow Rate FiO2 06/07/18 07:40 Room Air 06/07/18 03:00 98.9 59 18 159/83 (108) 96 98.9 I&O Intake and Output 06/07/18 06:59 Intake Total 660 ml Output Total 760 ml Balance -100 ml Intake Oral 660 ml Output Urine Total 760 ml # Voids 1 General: Alert, Oriented X3, Cooperative, No acute distress Abdomen: Soft, Other (ND, NTTP) Labs Laboratory Tests Test 06/05/18 14:03 06/05/18 16:30 06/05/18 21:20 06/06/18 08:09 White Blood Count 8.5 x10^3/uL (4.0-11.0) Red Blood Count 5.25 x10^6/uL (4.30-5.70) Hemoglobin 15.2 g/dL (13.0-17.5) Hematocrit 46.4 % (39.0-53.0) Mean Corpuscular Volume 88 fL (79-100) Mean Corpuscular Hemoglobin 29 pg (25-35) Mean Corpuscular Hemoglobin Concent 33 g/dL (31-37) Red Cell Distribution Width 13.6 % (11.5-14.5) Platelet Count 210 x10^3/uL (140-400) Neutrophils (%) (Auto) 72 % (31-73) Lymphocytes (%) (Auto) 16 % (24-48) Monocytes (%) (Auto) 9 % (0-9) Eosinophils (%) (Auto) 3 % (0-3) Basophils (%) (Auto) 1 % (0-3) Neutrophils # (Auto) 6.1 x10^3uL (1.8-7.7) Lymphocytes # (Auto) 1.3 x10^3/uL (1.0-4.8) Monocytes # (Auto) 0.8 x10^3/uL (0.0-1.1) Eosinophils # (Auto) 0.3 x10^3/uL (0.0-0.7) Basophils # (Auto) 0.0 x10^3/uL (0.0-0.2) Prothrombin Time 21.2 SEC (11.7-14.0) Prothromb Time International Ratio 1.9 (0.8-1.1) Activated Partial Thromboplast Time 32 SEC (24-38) Sodium Level 137 mmol/L (136-145) Potassium Level 4.4 mmol/L (3.5-5.1) Chloride Level 100 mmol/L (98-107) Carbon Dioxide Level 26 mmol/L (21-32) Anion Gap 11 (6-14) Blood Urea Nitrogen 24 mg/dL (8-26) Creatinine 1.9 mg/dL (0.7-1.3) Estimated GFR (Cockcroft-Gault) 34.5 BUN/Creatinine Ratio 13 (6-20) Glucose Level 230 mg/dL (70-99) Lactic Acid Level 1.7 mmol/L (0.4-2.0) Calcium Level 8.6 mg/dL (8.5-10.1) Total Bilirubin 0.7 mg/dL (0.2-1.0) Aspartate Amino Transf (AST/SGOT) 19 U/L (15-37) Alanine Aminotransferase (ALT/SGPT) 20 U/L (16-63) Alkaline Phosphatase 112 U/L (46-116) Total Protein 6.7 g/dL (6.4-8.2) Albumin 2.8 g/dL (3.4-5.0) Albumin/Globulin Ratio 0.7 (1.0-1.7) Lipase 92 U/L (73-393) Urine Collection Type Unknown Urine Color Katya Urine Clarity Cloudy Urine pH 5.0 Urine Specific [place] 1.025 Urine Protein Negative mg/dL (NEG-TRACE) Urine Glucose (UA) 100 mg/dL (NEG) Urine Ketones (Stick) Trace mg/dL (NEG) Urine Blood Negative (NEG) Urine Nitrite Negative (NEG) Urine Bilirubin Small (NEG) Urine Urobilinogen Dipstick 1.0 mg/dL (0.2 mg/dL) Urine Leukocyte Esterase Small (NEG) Urine RBC 0 /HPF (0-2) Urine WBC 20-40 /HPF (0-4) Urine Squamous Epithelial Cells Few /LPF Urine Bacteria Few /HPF (0-FEW) Urine Hyaline Casts Many /HPF Urine Mucus Marked /LPF Glucose (Fingerstick) 226 mg/dL (70-99) 174 mg/dL (70-99) Test 06/06/18 08:40 06/06/18 11:37 06/06/18 16:53 06/06/18 20:41 Hemoglobin A1c 9.7 % (4.8-5.6) Glucose (Fingerstick) 216 mg/dL (70-99) 147 mg/dL (70-99) 150 mg/dL (70-99) Test 06/07/18 04:15 06/07/18 07:20 Sodium Level 141 mmol/L (136-145) Potassium Level 4.0 mmol/L (3.5-5.1) Chloride Level 107 mmol/L (98-107) Carbon Dioxide Level 26 mmol/L (21-32) Anion Gap 8 (6-14) Blood Urea Nitrogen 16 mg/dL (8-26) Creatinine 1.6 mg/dL (0.7-1.3) Estimated GFR (Cockcroft-Gault) 42.0 Glucose Level 125 mg/dL (70-99) Calcium Level 8.0 mg/dL (8.5-10.1) Glucose (Fingerstick) 113 mg/dL (70-99) Laboratory Tests Test 06/06/18 08:40 06/06/18 11:37 06/06/18 16:53 06/06/18 20:41 Hemoglobin A1c 9.7 % (4.8-5.6) Glucose (Fingerstick) 216 mg/dL (70-99) 147 mg/dL (70-99) 150 mg/dL (70-99) Test 06/07/18 04:15 06/07/18 07:20 Sodium Level 141 mmol/L (136-145) Potassium Level 4.0 mmol/L (3.5-5.1) Chloride Level 107 mmol/L (98-107) Carbon Dioxide Level 26 mmol/L (21-32) Anion Gap 8 (6-14) Blood Urea Nitrogen 16 mg/dL (8-26) Creatinine 1.6 mg/dL (0.7-1.3) Estimated GFR (Cockcroft-Gault) 42.0 Glucose Level 125 mg/dL (70-99) Calcium Level 8.0 mg/dL (8.5-10.1) Glucose (Fingerstick) 113 mg/dL (70-99) Problem List Problems Medical Problems: (1) Small bowel obstruction Status: Acute Assessment/Plan some bowel function xrays still with obstructed appearance--will check SBFT with GG today to further assess BRENDON HILLIARD MD 06/07/18 1031: SURGICAL PROGRESS NOTE Assessment/Plan Agree with Jocelynn assessment and plan. Patient passing flatus but abd films no better from yesterday. Abd soft, mildly distended less tender. Will F/U on sbft CHERRY BONE APRN Jun 07, 2018 08:39 BRENDON HILLIARD MD Jun 07, 2018 10:31
[2018-06-07] MEDS ORDERED: IOHEXOL 300 MG/ML 100ML VIAL. PO ONE (09:00)
[2018-06-07] MEDS ORDERED: CONTRAST GIVEN. MC PRN (09:00)
[2018-06-07] MEDS: SMZ/TMP 800/160MG TABLET. PO SCH ×2 (09:00→20:56)
[2018-06-07] MEDS: LACTOBACILLUS RHAMNOSUS GG 1 CAPSULE. PO SCH ×2 (09:00→20:55)
[2018-06-07] MEDS: IV NORMAL SALINE 1000ML BAG 1,000 ML IV SCH ×2 (10:00→20:56)
--- NOTE | 2018-06-07 12:17 | PDOC ---
PROGRESS NOTES Subjective He passed a fair amount of gas last sasha when rolling over, tolerating liquids and po meds but remains distended, SBFT scheduled. He denies chest pain, SOA, urinary difficulty Objective Afebrile General: comfortable Heart: RRR Lungs: CTA Abd: mild, moderate distension but active bowel sounds, minimal tenderness Ext: neuropathy changes but no C/C/E glucose controlled Vital Signs Vital Signs Date Time Temp Pulse Resp B/P (MAP) Pulse Ox O2 Delivery O2 Flow Rate FiO2 06/07/18 07:40 Room Air 06/07/18 07:00 97.8 60 16 149/78 (101) 95 97.8 I & O Intake and Output 06/07/18 06:59 Intake Total 660 ml Output Total 760 ml Balance -100 ml Intake Oral 660 ml Output Urine Total 760 ml # Voids 1 Assessment and Plan (1) Small bowel obstruction - improving with conservative observation - SBFT today Status: Acute Fredy PYLE MD Jun 07, 2018 12:17
--- NOTE | 2018-06-07 12:45 | RAD ---
Small bowel series, 06/07/2018: History: Small bowel obstruction The preliminary abdominal image demonstrates ongoing gaseous distention of small bowel loops. Gas is present in the colon. Serial digital abdominal imaging was performed following oral ingestion of nonionic contrast material. 1.1 minute of fluoroscopy time was utilized. 5 fluoroscopic spot images were recorded. The duodenum is not dilated. No fold thickening is seen. There is mild to moderate distention of mid and distal small bowel loops. A focal point of obstruction was not delineated. The contrast did reach the right colon at 90 minutes. The terminal ileum is not dilated. IMPRESSION: Partial distal small bowel obstruction.
--- NOTE | 2018-06-07 13:02 | NUR ---
SW following for discharge planning. Discussed with RN, pt from home with , gets around fine. Pt on clear liquid diet. SW will continue to follow for any discharge planning needs.
[2018-06-07] MEDS: SOTALOL 80 MG TABLET. PO SCH (13:18)
[2018-06-07] MEDS: DOCUSATE SODIUM 100 MG CAPSULE. PO SCH (13:19)
[2018-06-07] MEDS: amLODIPine BESYLATE 5 MG TABLET PO SCH (13:19)
[2018-06-07 15:00] VITALS: BP 142/76
[2018-06-07] MEDS: RIVAROXABAN 15 MG TABLET. PO SCH (17:17)
[2018-06-07 19:00] VITALS: BP 157/85
[2018-06-07] MEDS: TAMSULOSIN 0.4 MG CAP.ER.24H. PO SCH (20:55)
[2018-06-07] MEDS: PREGABALIN 75 MG CAPSULE PO SCH (20:55)
[2018-06-07] MEDS: ATORVASTATIN CALCIUM 10 MG TABLET. PO SCH (20:56)
[2018-06-07 23:00] VITALS: BP 163/76
[2018-06-08 03:00] VITALS: BP 141/67
[2018-06-08 05:18] LABS: BASO % 1 % (0-3); EOS # 0.2 x10^3/uL (0.0-0.7); EOS % 4 % (0-3); HEMATOCRIT 38.3 % (39.0-53.0); HEMOGLOBIN 12.6 g/dL (13.0-17.5); LYMPH # 1.6 x10^3/uL (1.0-4.8); LYMPH % 26 % (24-48); MEAN CORPUSCULAR HEMOGLOBIN 29 pg (25-35); MEAN CORPUSCULAR HGB CONC 33 g/dL (31-37); MEAN CORPUSCULAR VOLUME 89 fL (79-100); MONO # 0.5 x10^3/uL (0.0-1.1); MONO % 9 % (0-9); NEUT # 3.7 x10^3uL (1.8-7.7); NEUT % 61 % (31-73); PLATELET COUNT 178 x10^3/uL (140-400); RED CELL DISTRIBUTION WIDTH 14.2 % (11.5-14.5); WHITE BLOOD COUNT 6.1 x10^3/uL (4.0-11.0)
[2018-06-08 05:37] LABS: ALBUMIN 2.5 g/dL (3.4-5.0); CREATININE 1.7 mg/dL (0.7-1.3); GFR 39.2; POTASSIUM 4.4 mmol/L (3.5-5.1); TOTAL BILIRUBIN 0.4 mg/dL (0.2-1.0); TOTAL PROTEIN 5.1 g/dL (6.4-8.2)
[2018-06-08 07:00] VITALS: BP 168/77
[2018-06-08] MEDS: INSULIN LISPRO 300 UNITS/3 ML INSULN.PEN. SQ SCH ×3 (08:00→17:29)
--- NOTE | 2018-06-08 08:28 | PDOC ---
CHERRY BONE [employer]CH[employer] 06/08/18 0828: SURGICAL PROGRESS NOTE Subjective resting multiple stools after sbft mild pain to left side with liquids this AM Vital Signs Vital Signs Date Time Temp Pulse Resp B/P (MAP) Pulse Ox O2 Delivery O2 Flow Rate FiO2 06/08/18 03:00 97.9 60 18 141/67 (91) 97 Room Air 97.9 I&O Intake and Output 06/08/18 07:00 Intake Total 900 ml Balance 900 ml Intake Oral 900 ml # Voids 3 # Bowel Movements 5 General: Alert, Oriented X3, Cooperative, No acute distress Abdomen: Soft, Other (ND, mild TTP LLQ) Labs Laboratory Tests Test 06/06/18 08:40 06/06/18 11:37 06/06/18 16:53 06/06/18 20:41 Hemoglobin A1c 9.7 % (4.8-5.6) Glucose (Fingerstick) 216 mg/dL (70-99) 147 mg/dL (70-99) 150 mg/dL (70-99) Test 06/07/18 04:15 06/07/18 07:20 06/07/18 13:20 06/07/18 16:46 Sodium Level 141 mmol/L (136-145) Potassium Level 4.0 mmol/L (3.5-5.1) Chloride Level 107 mmol/L (98-107) Carbon Dioxide Level 26 mmol/L (21-32) Anion Gap 8 (6-14) Blood Urea Nitrogen 16 mg/dL (8-26) Creatinine 1.6 mg/dL (0.7-1.3) Estimated GFR (Cockcroft-Gault) 42.0 Glucose Level 125 mg/dL (70-99) Calcium Level 8.0 mg/dL (8.5-10.1) Glucose (Fingerstick) 113 mg/dL (70-99) 162 mg/dL (70-99) 163 mg/dL (70-99) Test 06/07/18 20:54 06/08/18 04:45 Glucose (Fingerstick) 115 mg/dL (70-99) White Blood Count 6.1 x10^3/uL (4.0-11.0) Red Blood Count 4.30 x10^6/uL (4.30-5.70) Hemoglobin 12.6 g/dL (13.0-17.5) Hematocrit 38.3 % (39.0-53.0) Mean Corpuscular Volume 89 fL (79-100) Mean Corpuscular Hemoglobin 29 pg (25-35) Mean Corpuscular Hemoglobin Concent 33 g/dL (31-37) Red Cell Distribution Width 14.2 % (11.5-14.5) Platelet Count 178 x10^3/uL (140-400) Neutrophils (%) (Auto) 61 % (31-73) Lymphocytes (%) (Auto) 26 % (24-48) Monocytes (%) (Auto) 9 % (0-9) Eosinophils (%) (Auto) 4 % (0-3) Basophils (%) (Auto) 1 % (0-3) Neutrophils # (Auto) 3.7 x10^3uL (1.8-7.7) Lymphocytes # (Auto) 1.6 x10^3/uL (1.0-4.8) Monocytes # (Auto) 0.5 x10^3/uL (0.0-1.1) Eosinophils # (Auto) 0.2 x10^3/uL (0.0-0.7) Basophils # (Auto) 0.0 x10^3/uL (0.0-0.2) Sodium Level 142 mmol/L (136-145) Potassium Level 4.4 mmol/L (3.5-5.1) Chloride Level 109 mmol/L (98-107) Carbon Dioxide Level 24 mmol/L (21-32) Anion Gap 9 (6-14) Blood Urea Nitrogen 14 mg/dL (8-26) Creatinine 1.7 mg/dL (0.7-1.3) Estimated GFR (Cockcroft-Gault) 39.2 BUN/Creatinine Ratio 8 (6-20) Glucose Level 114 mg/dL (70-99) Calcium Level 8.0 mg/dL (8.5-10.1) Total Bilirubin 0.4 mg/dL (0.2-1.0) Aspartate Amino Transf (AST/SGOT) 14 U/L (15-37) Alanine Aminotransferase (ALT/SGPT) 19 U/L (16-63) Alkaline Phosphatase 89 U/L (46-116) Total Protein 5.1 g/dL (6.4-8.2) Albumin 2.5 g/dL (3.4-5.0) Albumin/Globulin Ratio 1.0 (1.0-1.7) Laboratory Tests Test 06/07/18 13:20 06/07/18 16:46 06/07/18 20:54 06/08/18 04:45 Glucose (Fingerstick) 162 mg/dL (70-99) 163 mg/dL (70-99) 115 mg/dL (70-99) White Blood Count 6.1 x10^3/uL (4.0-11.0) Red Blood Count 4.30 x10^6/uL (4.30-5.70) Hemoglobin 12.6 g/dL (13.0-17.5) Hematocrit 38.3 % (39.0-53.0) Mean Corpuscular Volume 89 fL (79-100) Mean Corpuscular Hemoglobin 29 pg (25-35) Mean Corpuscular Hemoglobin Concent 33 g/dL (31-37) Red Cell Distribution Width 14.2 % (11.5-14.5) Platelet Count 178 x10^3/uL (140-400) Neutrophils (%) (Auto) 61 % (31-73) Lymphocytes (%) (Auto) 26 % (24-48) Monocytes (%) (Auto) 9 % (0-9) Eosinophils (%) (Auto) 4 % (0-3) Basophils (%) (Auto) 1 % (0-3) Neutrophils # (Auto) 3.7 x10^3uL (1.8-7.7) Lymphocytes # (Auto) 1.6 x10^3/uL (1.0-4.8) Monocytes # (Auto) 0.5 x10^3/uL (0.0-1.1) Eosinophils # (Auto) 0.2 x10^3/uL (0.0-0.7) Basophils # (Auto) 0.0 x10^3/uL (0.0-0.2) Sodium Level 142 mmol/L (136-145) Potassium Level 4.4 mmol/L (3.5-5.1) Chloride Level 109 mmol/L (98-107) Carbon Dioxide Level 24 mmol/L (21-32) Anion Gap 9 (6-14) Blood Urea Nitrogen 14 mg/dL (8-26) Creatinine 1.7 mg/dL (0.7-1.3) Estimated GFR (Cockcroft-Gault) 39.2 BUN/Creatinine Ratio 8 (6-20) Glucose Level 114 mg/dL (70-99) Calcium Level 8.0 mg/dL (8.5-10.1) Total Bilirubin 0.4 mg/dL (0.2-1.0) Aspartate Amino Transf (AST/SGOT) 14 U/L (15-37) Alanine Aminotransferase (ALT/SGPT) 19 U/L (16-63) Alkaline Phosphatase 89 U/L (46-116) Total Protein 5.1 g/dL (6.4-8.2) Albumin 2.5 g/dL (3.4-5.0) Albumin/Globulin Ratio 1.0 (1.0-1.7) Problem List Problems Medical Problems: (1) Small bowel obstruction Status: Acute Assessment/Plan SBFT with psbo--contrast reached colon in 90 mins some pain with liquids, will check FU xrays this AM BRENDON HILLIARD MD 06/08/18 1113: SURGICAL PROGRESS NOTE Assessment/Plan Patient seen and examined by me is doing quite well as had multiple bowel movements abdomen is soft highly distended nontender were advanced diet as tolerated. No surgical plans CHERRY BONE APRN Jun 08, 2018 08:28 BRENDON HILLIARD MD Jun 08, 2018 11:13
[2018-06-08] MEDS: DOCUSATE SODIUM 100 MG CAPSULE. PO SCH (08:39)
[2018-06-08] MEDS: amLODIPine BESYLATE 5 MG TABLET PO SCH (08:39)
[2018-06-08] MEDS: LACTOBACILLUS RHAMNOSUS GG 1 CAPSULE. PO SCH ×2 (08:39→20:03)
[2018-06-08] MEDS: SMZ/TMP 800/160MG TABLET. PO SCH ×2 (08:39→20:04)
[2018-06-08] MEDS: SOTALOL 80 MG TABLET. PO SCH (08:40)
--- NOTE | 2018-06-08 09:56 | NUR ---
SW following. Discussed with RN, RN wanting PT/OT for pt - SW had Case Management order PT/OT. Per RN, pt's is a little concerned. SW will await PT/OT recommendations.
--- NOTE | 2018-06-08 09:59 | RAD ---
Abdomen, 2 views, 06/08/2018: HISTORY: Small bowel obstruction Comparison is made to images from yesterday's small bowel series. The contrast from that exam has passed into the nondilated colon. There is mild ongoing small bowel dilatation in the midabdomen, similar to that seen on yesterday's exam. The hemidiaphragm was not included on the current upright view. IMPRESSION: Ongoing partial small bowel obstruction, unchanged since yesterday's exam. Electronically signed by: Jorge Ritchie MD (06/08/2018 9:56 AM) [facility]
[2018-06-08 11:00] VITALS: BP 169/80
[2018-06-08] MEDS: IV NORMAL SALINE 1000ML BAG 1,000 ML IV SCH (13:21)
[2018-06-08 14:58] VITALS: BP 128/72
[2018-06-08] MEDS: RIVAROXABAN 15 MG TABLET. PO SCH (17:21)
--- NOTE | 2018-06-08 18:50 | PDOC ---
PROGRESS NOTES Subjective Passing gas and stool but remains distended, trying to advance diet but increased abdominal pain after soft food. SBFT shows partial obstruction present Objective Afebrile General: mild discomfort, trying to eat pudding Heart: RRR Lungs: CTA Abd: soft, distended, active bowel sounds Ext: no edema Vital Signs Vital Signs Date Time Temp Pulse Resp B/P (MAP) Pulse Ox O2 Delivery O2 Flow Rate FiO2 06/08/18 14:58 98.0 61 18 128/72 (90) 97 Room Air 98.0 I & O Intake and Output 06/08/18 07:00 Intake Total 900 ml Balance 900 ml Intake Oral 900 ml # Voids 3 # Bowel Movements 5 Assessment and Plan A/P 1. partial small bowel obstruction - advancing diet. He initially had diarrhea and took Imodium [facility] 2. CKD stable 3. type 2 diabetes with peripheral neuropathy - off metformin [facility] due to CKD, continue SSI 4. 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
[2018-06-08 19:00] VITALS: BP 190/89
[2018-06-08] MEDS: ATORVASTATIN CALCIUM 10 MG TABLET. PO SCH (20:01)
[2018-06-08] MEDS: PREGABALIN 75 MG CAPSULE PO SCH (20:02)
[2018-06-08] MEDS: TAMSULOSIN 0.4 MG CAP.ER.24H. PO SCH (20:03)
--- NOTE | 2018-06-08 20:12 | NUR ---
Pagemarcela PRIDE regarding patients BP of 190/89 HR 60 and when rechecked it was 187/84 HR 60. Orders were received and implemented at that time. RN will continue to monitor closely.
[2018-06-08] MEDS ORDERED: cloNIDine HCL 0.1 MG TABLET PO PRN (21:30)
[2018-06-08 22:57] VITALS: BP 150/89
[2018-06-09] VITALS (8 sets, daily range): BP systolic 135–190; BP diastolic 74–97
--- NOTE | 2018-06-09 03:00 | NUR ---
Patients BP was 190/97 HR 63 @ 0200 and when rechecked @0240 BP 177/94 HR 60. Vitals don't meet the guidelines for the PRN clonidine at this time. RN will continue to monitor closely.
[2018-06-09] MEDS: IV NORMAL SALINE 1000ML BAG 1,000 ML IV SCH ×2 (04:36→13:27)
[2018-06-09] MEDS: INSULIN LISPRO 300 UNITS/3 ML INSULN.PEN. SQ SCH ×3 (08:00→17:00)
--- NOTE | 2018-06-09 08:41 | PDOC ---
SURGICAL PROGRESS NOTE Subjective Patient states he had kind of a rough night last night with some abdominal pain still passing flatus and stool. He describes his pain is burning in the epigastric area like reflux Vital Signs Vital Signs Date Time Temp Pulse Resp B/P (MAP) Pulse Ox O2 Delivery O2 Flow Rate FiO2 06/09/18 07:00 98.4 60 18 184/91 (122) 96 Room Air 98.4 I&O Intake and Output 06/09/18 06:59 Intake Total 800 ml Output Total 4100 ml Balance -3300 ml Intake Oral 800 ml Output Urine Total 4100 ml # Voids 5 PATIENT HAS A UMANZOR: No General: Alert, Oriented X3, Cooperative, mild distress Abdomen: Normal bowel sounds, Soft, Other (mildly distended and mildly tender in the epigastrium) Labs Laboratory Tests Test 06/07/18 13:20 06/07/18 16:46 06/07/18 20:54 06/08/18 04:45 Glucose (Fingerstick) 162 mg/dL (70-99) 163 mg/dL (70-99) 115 mg/dL (70-99) White Blood Count 6.1 x10^3/uL (4.0-11.0) Red Blood Count 4.30 x10^6/uL (4.30-5.70) Hemoglobin 12.6 g/dL (13.0-17.5) Hematocrit 38.3 % (39.0-53.0) Mean Corpuscular Volume 89 fL (79-100) Mean Corpuscular Hemoglobin 29 pg (25-35) Mean Corpuscular Hemoglobin Concent 33 g/dL (31-37) Red Cell Distribution Width 14.2 % (11.5-14.5) Platelet Count 178 x10^3/uL (140-400) Neutrophils (%) (Auto) 61 % (31-73) Lymphocytes (%) (Auto) 26 % (24-48) Monocytes (%) (Auto) 9 % (0-9) Eosinophils (%) (Auto) 4 % (0-3) Basophils (%) (Auto) 1 % (0-3) Neutrophils # (Auto) 3.7 x10^3uL (1.8-7.7) Lymphocytes # (Auto) 1.6 x10^3/uL (1.0-4.8) Monocytes # (Auto) 0.5 x10^3/uL (0.0-1.1) Eosinophils # (Auto) 0.2 x10^3/uL (0.0-0.7) Basophils # (Auto) 0.0 x10^3/uL (0.0-0.2) Sodium Level 142 mmol/L (136-145) Potassium Level 4.4 mmol/L (3.5-5.1) Chloride Level 109 mmol/L (98-107) Carbon Dioxide Level 24 mmol/L (21-32) Anion Gap 9 (6-14) Blood Urea Nitrogen 14 mg/dL (8-26) Creatinine 1.7 mg/dL (0.7-1.3) Estimated GFR (Cockcroft-Gault) 39.2 BUN/Creatinine Ratio 8 (6-20) Glucose Level 114 mg/dL (70-99) Calcium Level 8.0 mg/dL (8.5-10.1) Total Bilirubin 0.4 mg/dL (0.2-1.0) Aspartate Amino Transf (AST/SGOT) 14 U/L (15-37) Alanine Aminotransferase (ALT/SGPT) 19 U/L (16-63) Alkaline Phosphatase 89 U/L (46-116) Total Protein 5.1 g/dL (6.4-8.2) Albumin 2.5 g/dL (3.4-5.0) Albumin/Globulin Ratio 1.0 (1.0-1.7) Test 06/08/18 07:44 06/08/18 11:39 06/08/18 17:12 06/08/18 20:59 Glucose (Fingerstick) 106 mg/dL (70-99) 110 mg/dL (70-99) 155 mg/dL (70-99) 168 mg/dL (70-99) Laboratory Tests Test 06/08/18 11:39 06/08/18 17:12 06/08/18 20:59 Glucose (Fingerstick) 110 mg/dL (70-99) 155 mg/dL (70-99) 168 mg/dL (70-99) Problem List Problems Medical Problems: (1) Small bowel obstruction Status: Acute Assessment/Plan Ileus with oral contrast passing to the colon Reflux symptoms Would not advance diet at this time we'll check abdominal films BRENDON HILLIARD MD Jun 09, 2018 08:41
[2018-06-09] MEDS: DOCUSATE SODIUM 100 MG CAPSULE. PO SCH (09:00)
[2018-06-09] MEDS: amLODIPine BESYLATE 5 MG TABLET PO SCH ×2 (09:00→11:25)
[2018-06-09] MEDS ORDERED: HYDROcodone/APAP 5/325MG 1 TAB TABLET PO PRN (09:45)
--- NOTE | 2018-06-09 11:03 | PDOC ---
PROGRESS NOTES Subjective Subjective Patient did not tolerate diet yesterday with increased abd distention and nausea. Patient improved with renewed NPO status and IVF. Patient again passing gas with decreased abd pain Objective Objective Vital Signs Date Time Temp Pulse Resp B/P (MAP) Pulse Ox O2 Delivery O2 Flow Rate FiO2 06/09/18 07:00 98.4 60 18 184/91 (122) 96 Room Air 98.4 Intake and Output 06/09/18 07:00 Intake Total 800 ml Output Total 4100 ml Balance -3300 ml Intake Oral 800 ml Output Urine Total 4100 ml # Voids 5 Physical Exam Abdomen: Normal bowel sounds, Other (diatended w/o sig tenderness) Heart: Regular rate Extremities: No edema General: Alert Lungs: Clear to auscultation Assessment Assessment Problems Medical Problems: (1) Small bowel obstruction Status: Acute Partial SBO HTN CKD stable 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 Consider SBF check labs Increase Norvasc add PRN bp treatment Comment Review of Relevant I have reviewed the following items maria luisa (where applicable) has been applied. Labs Laboratory Tests Test 06/07/18 13:20 06/07/18 16:46 06/07/18 20:54 06/08/18 04:45 Glucose (Fingerstick) 162 mg/dL (70-99) 163 mg/dL (70-99) 115 mg/dL (70-99) White Blood Count 6.1 x10^3/uL (4.0-11.0) Red Blood Count 4.30 x10^6/uL (4.30-5.70) Hemoglobin 12.6 g/dL (13.0-17.5) Hematocrit 38.3 % (39.0-53.0) Mean Corpuscular Volume 89 fL (79-100) Mean Corpuscular Hemoglobin 29 pg (25-35) Mean Corpuscular Hemoglobin Concent 33 g/dL (31-37) Red Cell Distribution Width 14.2 % (11.5-14.5) Platelet Count 178 x10^3/uL (140-400) Neutrophils (%) (Auto) 61 % (31-73) Lymphocytes (%) (Auto) 26 % (24-48) Monocytes (%) (Auto) 9 % (0-9) Eosinophils (%) (Auto) 4 % (0-3) Basophils (%) (Auto) 1 % (0-3) Neutrophils # (Auto) 3.7 x10^3uL (1.8-7.7) Lymphocytes # (Auto) 1.6 x10^3/uL (1.0-4.8) Monocytes # (Auto) 0.5 x10^3/uL (0.0-1.1) Eosinophils # (Auto) 0.2 x10^3/uL (0.0-0.7) Basophils # (Auto) 0.0 x10^3/uL (0.0-0.2) Sodium Level 142 mmol/L (136-145) Potassium Level 4.4 mmol/L (3.5-5.1) Chloride Level 109 mmol/L (98-107) Carbon Dioxide Level 24 mmol/L (21-32) Anion Gap 9 (6-14) Blood Urea Nitrogen 14 mg/dL (8-26) Creatinine 1.7 mg/dL (0.7-1.3) Estimated GFR (Cockcroft-Gault) 39.2 BUN/Creatinine Ratio 8 (6-20) Glucose Level 114 mg/dL (70-99) Calcium Level 8.0 mg/dL (8.5-10.1) Total Bilirubin 0.4 mg/dL (0.2-1.0) Aspartate Amino Transf (AST/SGOT) 14 U/L (15-37) Alanine Aminotransferase (ALT/SGPT) 19 U/L (16-63) Alkaline Phosphatase 89 U/L (46-116) Total Protein 5.1 g/dL (6.4-8.2) Albumin 2.5 g/dL (3.4-5.0) Albumin/Globulin Ratio 1.0 (1.0-1.7) Test 06/08/18 07:44 06/08/18 11:39 06/08/18 17:12 06/08/18 20:59 Glucose (Fingerstick) 106 mg/dL (70-99) 110 mg/dL (70-99) 155 mg/dL (70-99) 168 mg/dL (70-99) Laboratory Tests Test 06/08/18 11:39 06/08/18 17:12 06/08/18 20:59 Glucose (Fingerstick) 110 mg/dL (70-99) 155 mg/dL (70-99) 168 mg/dL (70-99) Microbiology 06/05/18 Urine Culture - Final, Complete 06/05/18 Urine Culture Result 1 (TREV) - Final, Complete Medications Current Medications Sodium Chloride 500 ml @ 500 mls/hr 1X ONCE IV Last administered on 14:47; Start 06/05/18 at 14:45; Stop 06/05/18 at 15:44; Status DC Dextrose/Lactated Ringer's 1,000 ml @ 125 mls/hr 1X ONCE IV Last administered on 06/05/18 16:48; Start 06/05/18 at 16:00; Stop 06/05/18 at 23:59 ; Status DC Sodium Chloride 1,000 ml @ 80 mls/hr [id number] IV Last administered on 04:36; Start 06/05/18 at 20:30 Insulin Human Lispro (HumaLOG) 0-5 UNITS TIDWMEALS SQ Last administered on 06/07 17:22; Start 06/06/18 at 08:00 Dextrose (Dextrose 50%-Water Syringe) 12.5 gm PRN Q15MIN PRN IV SEE COMMENTS; Start 06/05/18 at 21:45 Docusate Sodium (Colace) 100 mg DAILY PO Last administered on 06/08/18 08:39; Start 06/06/18 at 09:00 Rivaroxaban (Xarelto) 15 mg DAILYWSUP PO Last administered on 06/08/18 17:21; Start 06/06/18 at 17:00 Tamsulosin HCl (Flomax) 0.4 mg HS PO Last administered on 06/08/18 20:03; Start 06/06/18 at 21:00 Amlodipine Besylate (Norvasc) 2.5 mg DAILY PO Last administered on 06/08/18 08 :39; Start 06/06/18 at 09:00 Atorvastatin Calcium (Lipitor) 10 mg QHS PO Last administered on 06/08/18 20: 01; Start 06/06/18 at 21:00 Pregabalin (Lyrica) 150 mg QHS PO Last administered on 06/08/18 20:02; Start 06/06/18 at 21:00 Sotalol HCl (Betapace) 120 mg DAILY PO Last administered on 06/08/18at 08:40; Start 06/06/18 at 09:00 Nitrofurantoin Macrocrystals (Macrobid) 100 mg BID PO ; Start 06/06/18 at 09:00 ; Status UNV Info (Anti-Coagulation Monitoring By Pharmacy) 1 each PRN DAILY PRN MC SEE COMMENTS Last administered on 06/06/18at 11:44; Start 06/06/18 at 08:30 Trimethoprim/ Sulfamethoxazole (Bactrim Ds) 0.5 tab BID PO Last administered on 06/08/18at 20:04; Start 06/06/18 at 10:00 Lactobacillus Rhamnosus (Culturelle) 1 cap BID PO Last administered on at 20:03; Start 06/06/18 at 21:00 Iohexol (Omnipaque 300 Mg/ml) 400 ml 1X ONCE PO ; Start 06/07/18 at 09:00; Stop 06/07/18 at 09:01; Status DC Info (CONTRAST GIVEN -- Rx MONITORING) 1 each PRN DAILY PRN MC SEE COMMENTS; Start 06/07/18 at 09:00; Stop 06/09/18 at 08:59; Status DC Clonidine HCl (Catapres) 0.1 mg PRN Q3HRS PRN PO HYPERTENSION, SEE COMMENTS; Start 06/08/18 at 21:30 Pantoprazole Sodium (Protonix) 40 mg DAILYAC PO ; Start 06/09/18 at 09:00 Acetaminophen/ Hydrocodone Bitart (Lortab 5/325) 1 tab PRN Q4HRS PRN PO PAIN; Start 06/09/18 at 09:45 Active Scripts Active Reported Sotalol (Sotalol Hcl) 80 Mg Tablet 120 Mg PO DAILY Mag-Oxide (Magnesium Oxide) 200 Mg Tablet 400 Mg PO BID Xarelto (Rivaroxaban) 15 Mg Tablet 15 Mg PO DAILY Amlodipine Besylate 2.5 Mg Tablet 2.5 Mg PO DAILY Docusate Sodium 100 Mg Capsule 100 Mg PO BID Cyanocobalamin Injection (Cyanocobalamin (Vitamin B-12)) 1,000 Mcg/1 Ml Vial 1 Ml IM QMONTH Not taken while in hosp. May resume at home as directed Vitamin D (Cholecalciferol (Vitamin D3)) 10,000 Unit Capsule 50,000 Unit PO WEEKLY Tamsulosin Hcl 0.4 Mg Cap.er.24h 1 Cap PO HS Last dose given: 05-15-14 9:00 p.m. Next dose due: tonight Lovastatin 20 Mg Tablet 1 Tab PO HS Last dose given: 05-15-14 Next dose due: tonight Lyrica (Pregabalin) 150 Mg Capsule 1 Cap PO HS Last dose given: 05-16-14 9:00 p.m. Next dose due: tonight Vitals/I & O Vital Sign - Last 24 Hours 06/08/18 06/08/18 06/08/18 06/08/18 11:00 14:58 19:00 20:35 Temp 98.5 98.0 97.8 98.5 98.0 97.8 Pulse 60 61 60 Resp 19 18 18 B/P (MAP) 169/80 (109) 128/72 (90) 190/89 (122) Pulse Ox 98 97 98 O2 Delivery Room Air Room Air Room Air Room Air 06/08/18 06/09/18 06/09/18 06/09/18 22:57 02:00 02:40 04:17 Temp 97.9 97.7 97.9 97.7 Pulse 61 63 60 77 Resp 18 18 18 B/P (MAP) 150/89 (109) 190/97 (128) 177/94 (121) 179/88 (118) Pulse Ox 99 O2 Delivery Room Air Room Air Room Air Room Air 06/09/18 07:00 Temp 98.4 98.4 Pulse 60 Resp 18 B/P (MAP) 184/91 (122) Pulse Ox 96 O2 Delivery Room Air Intake and Output 06/08/18 06/08/18 06/09/18 15:00 23:00 07:00 Intake Total 800 ml Output Total 400 ml 3700 ml Balance -400 ml -2900 ml MAYLIN VERAS MD Jun 09, 2018 11:03
[2018-06-09] MEDS ORDERED: cloNIDine HCL 0.1 MG TABLET PO PRN (11:15)
[2018-06-09] MEDS: PANTOPRAZOLE 40 MG TABLET.DR. PO SCH (11:20)
[2018-06-09] MEDS: SOTALOL 80 MG TABLET. PO SCH (11:22)
[2018-06-09] MEDS: SMZ/TMP 800/160MG TABLET. PO SCH ×2 (11:24→21:33)
[2018-06-09] MEDS: LACTOBACILLUS RHAMNOSUS GG 1 CAPSULE. PO SCH ×2 (11:24→21:32)
--- NOTE | 2018-06-09 11:26 | RAD ---
Supine and upright abdomen HISTORY: Abdominal pain Supine and upright views were taken of the abdomen. Comparison is made with a study from one day ago. There is persistent small bowel distention. There is gas throughout the colon. There is contrast in the distal colon and at the rectum. The pattern suggests a persistent partial small bowel obstruction. There is scoliosis and degenerative change in the lumbar spine. The upright view appears to be semiupright which limits evaluation. IMPRESSION: 1. Persistent bowel distention with little change. Electronically signed by: Romeo Swanson MD (06/09/2018 11:23 AM) [facility]
[2018-06-09] MEDS: ANTI-COAG MONITOR BY PHARMACY. MC PRN (13:15)
[2018-06-09 13:24] LABS: HEMATOCRIT 44.1 % (39.0-53.0); HEMOGLOBIN 14.3 g/dL (13.0-17.5); RED BLOOD COUNT 4.97 x10^6/uL (4.30-5.70); RED CELL DISTRIBUTION WIDTH 13.9 % (11.5-14.5); WHITE BLOOD COUNT 7.4 x10^3/uL (4.0-11.0)
[2018-06-09 13:31] LABS: CALCIUM 8.4 mg/dL (8.5-10.1); CREATININE 1.6 mg/dL (0.7-1.3); POTASSIUM 4.1 mmol/L (3.5-5.1)
--- NOTE | 2018-06-09 15:16 | PDOC2 ---
GI CONSULT Reason For Consult: Abd distention HPI: HPI: 77 year old male admitted 06/05/2018 with SBO after ? gastroenteritis after eating at [employer] . He had been recovering when he began a soft diet yesterday. He reports abdominal burning and distention. he admits to flatus and has been having bowel movements in house. His last BM was yesterday. KUB today shows persistent SBO with contrast in distal colon from SBS 06/07. Last colonoscopy 5 years ago PMH: PMH: Past Medical History Cardiovascular: AFIB, CAD, HTN, Hyperlipidemia Pulmonary: No pertinent hx GI: No pertinent hx Heme/Onc: No pertinent hx Hepatobiliary: No pertinent hx Psych: No pertinent hx Rheumatologic: No pertinent hx Infectious disease: No pertinent hx ENT: No pertinent hx Renal/: Chronic renal insuff, Benign prostatic enlarg. Endocrine: Diabetes Dermatology: No pertinent hx Past Surgical History Past Surgical History: Pacemaker, Cataract Removal, Total knee replacement, Other (stent placement, laminectomy, lipoma excision) Family History Family History: Cancer Social History Smoke: No ALCOHOL: none Drugs: None Active Scripts Active Reported Sotalol (Sotalol Hcl) 80 Mg Tablet 120 Mg PO DAILY Mag-Oxide (Magnesium Oxide) 200 Mg Tablet 400 Mg PO BID Xarelto (Rivaroxaban) 15 Mg Tablet 15 Mg PO DAILY Amlodipine Besylate 2.5 Mg Tablet 2.5 Mg PO DAILY Docusate Sodium 100 Mg Capsule 100 Mg PO BID Cyanocobalamin Injection (Cyanocobalamin (Vitamin B-12)) 1,000 Mcg/1 Ml Vial 1 Ml IM QMONTH Not taken while in hosp. May resume at home as directed Vitamin D (Cholecalciferol (Vitamin D3)) 10,000 Unit Capsule 50,000 Unit PO WEEKLY Tamsulosin Hcl 0.4 Mg Cap.er.24h 1 Cap PO HS Last dose given: 05-15-14 9:00 p.m. Next dose due: tonight Lovastatin 20 Mg Tablet 1 Tab PO HS Last dose given: 05-15-14 Next dose due: tonight Lyrica (Pregabalin) 150 Mg Capsule 1 Cap PO HS Last dose given: 05-16-14 9:00 p.m. Next dose due: tonight Allergies Allergies: Coded Allergies: Penicillins (Verified Allergy, Intermediate, Swelling, 05/14/14) Social History: Smoke: No ALCOHOL: none Drugs: None ROS: ROS Gastrointestinal: Yes Abdominal Pain, Yes Diarrhea VItals: Vitals: Vital Signs Date Time Temp Pulse Resp B/P (MAP) Pulse Ox O2 Delivery O2 Flow Rate FiO2 06/09/18 11:25 60 184/91 06/09/18 11:00 97.9 20 95 Room Air 97.9 Labs: Labs: Laboratory Tests Test 06/08/18 17:12 06/08/18 20:59 06/09/18 11:45 06/09/18 13:00 Glucose (Fingerstick) 155 mg/dL (70-99) 168 mg/dL (70-99) 133 mg/dL (70-99) White Blood Count 7.4 x10^3/uL (4.0-11.0) Red Blood Count 4.97 x10^6/uL (4.30-5.70) Hemoglobin 14.3 g/dL (13.0-17.5) Hematocrit 44.1 % (39.0-53.0) Mean Corpuscular Volume 89 fL (79-100) Mean Corpuscular Hemoglobin 29 pg (25-35) Mean Corpuscular Hemoglobin Concent 33 g/dL (31-37) Red Cell Distribution Width 13.9 % (11.5-14.5) Platelet Count 190 x10^3/uL (140-400) Sodium Level 141 mmol/L (136-145) Potassium Level 4.1 mmol/L (3.5-5.1) Chloride Level 105 mmol/L (98-107) Carbon Dioxide Level 24 mmol/L (21-32) Anion Gap 12 (6-14) Blood Urea Nitrogen 8 mg/dL (8-26) Creatinine 1.6 mg/dL (0.7-1.3) Estimated GFR (Cockcroft-Gault) 42.0 Glucose Level 145 mg/dL (70-99) Calcium Level 8.4 mg/dL (8.5-10.1) Imaging: Imaging: Signed PATIENT: CHRISTOPHER BALLARD ACCOUNT: [id number] : 1940 LOCATION: ER AGE: 77 SEX: M EXAM STATUS: REG ER ORD. PHYSICIAN: KELLY SAEZ MD REASON: abd pain, bloating, possible SBO? PROCEDURE: CT ABDOMEN PELVIS WO CONTRAST PQRS Compliance Statement: One or more of the following individualized dose reduction techniques were utilized for this examination: 1. Automated exposure control 2. Adjustment of the mA and/or kV according to patient size 3. Use of iterative reconstruction technique CT ABDOMEN PELVIS WO CONTRAST Clinical Indication: abd pain, bloating, possible SBO Comparison: None. Technique: Helical CT imaging of the abdomen and pelvis is performed without IV or oral contrast. Findings: Evaluation of solid organs and bowel is limited without oral and IV contrast, decreasing sensitivity for detection of pathology. Cardiac pacer wires are partially seen. Cardiac size normal. Calcified granuloma posterior right lower lobe. Mainly in the periphery of the bilateral lung bases there are scattered reticular nodular opacities. There is no consolidation. The liver, gallbladder, spleen, pancreas, adrenal glands, and abdominal aorta caliber are normal. Kidneys are atrophic. No hydronephrosis. Stomach unremarkable. Mid small bowel is moderately dilated and air and fluid-filled. Mild induration of the associated mesentery. Distal small bowel is relatively normal caliber. Point of transition appears to involve the lower central abdomen, coronal image 30. Adhesions or an internal hernia are considerations. There is no colon wall thickening. The appendix is normal. No abdominal adenopathy. Urinary bladder is not well distended, otherwise normal. Prostate is enlarged. No pelvic free fluid. Degenerative arthropathy of the hips. Degenerative spondylosis of the lumbar spine. IMPRESSION: 1. Mid small bowel obstruction as described above. 2. Scattered reticular nodular opacities mainly in the periphery of the bilateral lung bases, suggestive of nonspecific bronchiolitis. 3. Prostate is enlarged. Electronically signed by: Roger Cat MD (06/05/2018 3:13 PM) [id number] PATIENT: CHRISTOPHER BALLARD ACCOUNT: [id number] : 1940 LOCATION: [address] [place] [address] AGE: 77 SEX: M EXAM STATUS: ADM IN ORD. PHYSICIAN: BRENDON HILLIARD MD REASON: abdominal distention PROCEDURE: ABDOMEN SUPINE & UPRIGHT Supine and upright abdomen HISTORY: Abdominal pain Supine and upright views were taken of the abdomen. Comparison is made with a study from one day ago. There is persistent small bowel distention. There is gas throughout the colon. There is contrast in the distal colon and at the rectum. The pattern suggests a persistent partial small bowel obstruction. There is scoliosis and degenerative change in the lumbar spine. The upright view appears to be semiupright which limits evaluation. IMPRESSION: 1. Persistent bowel distention with little change. Electronically signed by: Romeo Swanson MD (06/09/2018 11:23 AM) [facility] DICTATED and SIGNED BY: ROMEO SWANSON MD DATE: 06/09/18 1123 PE: Physical Exam General: Alert, Oriented X3, Cooperative, No acute distress HEENT: Atraumatic, PERRLA, EOMI Lungs: Clear to auscultation, Normal air movement Heart: Regular rate, No murmurs Abdomen: Soft, Other (hypoactive bowel sounds mildly distended nontender to palpation) Extremities: No edema Skin: No significant lesion Neuro: Normal speech Psych/Mental Status: Mental status NL A/P: A/P: A) 1) Partial SBO 2) Contrast in colon likely from SBS 06/07/2018 P) 1) Favor back off on diet 2) Consider Trial of reglan 3) If no improvement, favor NGT. Patient reports that he has not had one since admit. He states that he is having flatus at this time 4) Consider relistor- he has not had narcotics since admit though 5) repeat imaging in GUTIERREZ Darling MD Jun 09, 2018 15:16
[2018-06-09] MEDS ORDERED: PANTOPRAZOLE IV PUSH 40 MG VIAL. IVP ONE (15:30)
[2018-06-09] MEDS: RIVAROXABAN 15 MG TABLET. PO SCH ×2 (16:31→17:48)
[2018-06-09] MEDS: ATORVASTATIN CALCIUM 10 MG TABLET. PO SCH (21:31)
[2018-06-09] MEDS: PREGABALIN 75 MG CAPSULE PO SCH (21:32)
[2018-06-09] MEDS: TAMSULOSIN 0.4 MG CAP.ER.24H. PO SCH (21:34)
[2018-06-10] MEDS: IV NORMAL SALINE 1000ML BAG 1,000 ML IV SCH ×2 (01:24→13:00)
[2018-06-10 03:00] VITALS: BP 169/75
[2018-06-10] MEDS: PANTOPRAZOLE 40 MG TABLET.DR. PO SCH (06:11)
[2018-06-10 07:00] VITALS: BP_SYST 110; BP_SYST 140; BP_DIAS 76; BP_DIAS 79
[2018-06-10] MEDS: INSULIN LISPRO 300 UNITS/3 ML INSULN.PEN. SQ SCH ×3 (08:00→17:00)
--- NOTE | 2018-06-10 08:38 | RAD ---
Examination: Acute abdomen series HISTORY: Small bowel obstruction COMPARISON: 06/09/2018 Findings/ impression: The cardiomediastinal silhouette grossly appears unremarkable. Left-sided pacemaker is identified. Mild bibasilar lung airspace opacities likely atelectasis or infiltrates. Multiple dilated small bowel loops identified throughout the abdomen similar to prior exam unchanged. Contrast is identified in the sigmoid colon and rectum. Electronically signed by: Rl Washington MD (06/10/2018 8:35 AM) [facility]
[2018-06-10] MEDS: DOCUSATE SODIUM 100 MG CAPSULE. PO SCH (09:00)
[2018-06-10] MEDS: SOTALOL 80 MG TABLET. PO SCH (10:02)
[2018-06-10] MEDS: LACTOBACILLUS RHAMNOSUS GG 1 CAPSULE. PO SCH ×2 (10:02→22:10)
[2018-06-10] MEDS: SMZ/TMP 800/160MG TABLET. PO SCH ×2 (10:02→22:10)
[2018-06-10] MEDS: amLODIPine BESYLATE 5 MG TABLET PO SCH (10:03)
--- NOTE | 2018-06-10 10:12 | PDOC ---
SURGICAL PROGRESS NOTE Subjective Patient feeling much better this morning less distended passing a lot of flatus small bowel movement Vital Signs Vital Signs Date Time Temp Pulse Resp B/P (MAP) Pulse Ox O2 Delivery O2 Flow Rate FiO2 06/10/18 10:03 60 140/79 06/10/18 07:00 97.9 16 94 Room Air 97.9 I&O Intake and Output 06/10/18 07:00 Output Total 1625 ml Balance -1625 ml Output Urine Total 1625 ml # Voids 2 PATIENT HAS A UMANZOR: No General: Alert, Oriented X3, Cooperative, No acute distress Abdomen: Normal bowel sounds, Soft, No tenderness Labs Laboratory Tests Test 06/08/18 11:39 06/08/18 17:12 06/08/18 20:59 06/09/18 11:45 Glucose (Fingerstick) 110 mg/dL (70-99) 155 mg/dL (70-99) 168 mg/dL (70-99) 133 mg/dL (70-99) Test 06/09/18 13:00 06/09/18 16:47 06/09/18 20:46 White Blood Count 7.4 x10^3/uL (4.0-11.0) Red Blood Count 4.97 x10^6/uL (4.30-5.70) Hemoglobin 14.3 g/dL (13.0-17.5) Hematocrit 44.1 % (39.0-53.0) Mean Corpuscular Volume 89 fL (79-100) Mean Corpuscular Hemoglobin 29 pg (25-35) Mean Corpuscular Hemoglobin Concent 33 g/dL (31-37) Red Cell Distribution Width 13.9 % (11.5-14.5) Platelet Count 190 x10^3/uL (140-400) Sodium Level 141 mmol/L (136-145) Potassium Level 4.1 mmol/L (3.5-5.1) Chloride Level 105 mmol/L (98-107) Carbon Dioxide Level 24 mmol/L (21-32) Anion Gap 12 (6-14) Blood Urea Nitrogen 8 mg/dL (8-26) Creatinine 1.6 mg/dL (0.7-1.3) Estimated GFR (Cockcroft-Gault) 42.0 Glucose Level 145 mg/dL (70-99) Calcium Level 8.4 mg/dL (8.5-10.1) Glucose (Fingerstick) 105 mg/dL (70-99) 127 mg/dL (70-99) Laboratory Tests Test 06/09/18 11:45 06/09/18 13:00 06/09/18 16:47 06/09/18 20:46 Glucose (Fingerstick) 133 mg/dL (70-99) 105 mg/dL (70-99) 127 mg/dL (70-99) White Blood Count 7.4 x10^3/uL (4.0-11.0) Red Blood Count 4.97 x10^6/uL (4.30-5.70) Hemoglobin 14.3 g/dL (13.0-17.5) Hematocrit 44.1 % (39.0-53.0) Mean Corpuscular Volume 89 fL (79-100) Mean Corpuscular Hemoglobin 29 pg (25-35) Mean Corpuscular Hemoglobin Concent 33 g/dL (31-37) Red Cell Distribution Width 13.9 % (11.5-14.5) Platelet Count 190 x10^3/uL (140-400) Sodium Level 141 mmol/L (136-145) Potassium Level 4.1 mmol/L (3.5-5.1) Chloride Level 105 mmol/L (98-107) Carbon Dioxide Level 24 mmol/L (21-32) Anion Gap 12 (6-14) Blood Urea Nitrogen 8 mg/dL (8-26) Creatinine 1.6 mg/dL (0.7-1.3) Estimated GFR (Cockcroft-Gault) 42.0 Glucose Level 145 mg/dL (70-99) Calcium Level 8.4 mg/dL (8.5-10.1) Problem List Problems Medical Problems: (1) Small bowel obstruction Status: Acute Assessment/Plan Resolving small bowel obstruction tolerating clear liquid diet will advanced to soft mechanical BRENDON HILLIARD MD Jun 10, 2018 10:12
[2018-06-10 11:00] VITALS: BP 147/75
--- NOTE | 2018-06-10 13:54 | PDOC ---
Subjective: Subjective: feels better today. Just ate biscuits and gravy Objective: Vital Signs: Vital Signs Date Time Temp Pulse Resp B/P (MAP) Pulse Ox O2 Delivery O2 Flow Rate FiO2 06/10/18 11:00 97.8 60 16 147/75 (99) 95 Room Air 97.8 06/10/18 07:00 Labs: Laboratory Tests Test 06/09/18 16:47 06/09/18 20:46 06/10/18 08:01 06/10/18 11:20 Glucose (Fingerstick) 105 mg/dL (70-99) 127 mg/dL (70-99) 97 mg/dL (70-99) 99 mg/dL (70-99) Physical Exam: Physical Exam: PE: Physical Exam General: Alert, Oriented X3, Cooperative, No acute distress HEENT: Atraumatic, PERRLA, EOMI Lungs: Clear to auscultation, Normal air movement Heart: Regular rate, No murmurs Abdomen: Soft, Other (hypoactive bowel sounds mildly distended nontender to palpation) Extremities: No edema Skin: No significant lesion Neuro: Normal speech Psych/Mental Status: Mental status NL Assessment & Plan: Assessment : A/P: A/P: A) 1) Partial SBO 2) Contrast in colon likely from SBS 06/07/2018 Plan: P) 1) ADAT per GS 2) Monitor GUTIERREZ Hinkle MD Jun 10, 2018 13:54
--- NOTE | 2018-06-10 14:52 | PDOC ---
PROGRESS NOTES Subjective Subjective Patient Feeling better and now tolerating soft diet. 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 Labs Laboratory Tests Test 06/08/18 17:12 06/08/18 20:59 06/09/18 11:45 06/09/18 13:00 Glucose (Fingerstick) 155 mg/dL (70-99) 168 mg/dL (70-99) 133 mg/dL (70-99) White Blood Count 7.4 x10^3/uL (4.0-11.0) Red Blood Count 4.97 x10^6/uL (4.30-5.70) Hemoglobin 14.3 g/dL (13.0-17.5) Hematocrit 44.1 % (39.0-53.0) Mean Corpuscular Volume 89 fL (79-100) Mean Corpuscular Hemoglobin 29 pg (25-35) Mean Corpuscular Hemoglobin Concent 33 g/dL (31-37) Red Cell Distribution Width 13.9 % (11.5-14.5) Platelet Count 190 x10^3/uL (140-400) Sodium Level 141 mmol/L (136-145) Potassium Level 4.1 mmol/L (3.5-5.1) Chloride Level 105 mmol/L (98-107) Carbon Dioxide Level 24 mmol/L (21-32) Anion Gap 12 (6-14) Blood Urea Nitrogen 8 mg/dL (8-26) Creatinine 1.6 mg/dL (0.7-1.3) Estimated GFR (Cockcroft-Gault) 42.0 Glucose Level 145 mg/dL (70-99) Calcium Level 8.4 mg/dL (8.5-10.1) Test 06/09/18 16:47 06/09/18 20:46 06/10/18 08:01 06/10/18 11:20 Glucose (Fingerstick) 105 mg/dL (70-99) 127 mg/dL (70-99) 97 mg/dL (70-99) 99 mg/dL (70-99) Laboratory Tests Test 06/09/18 16:47 06/09/18 20:46 06/10/18 08:01 06/10/18 11:20 Glucose (Fingerstick) 105 mg/dL (70-99) 127 mg/dL (70-99) 97 mg/dL (70-99) 99 mg/dL (70-99) Microbiology 06/05/18 Urine Culture - Final, Complete 06/05/18 Urine Culture Result 1 (TREV) - Final, Complete Medications Current Medications Sodium Chloride 500 ml @ 500 mls/hr 1X ONCE IV Last administered on at 14:47; Start 06/05/18 at 14:45; Stop 06/05/18 at 15:44; Status DC Dextrose/Lactated Ringer's 1,000 ml @ 125 mls/hr 1X ONCE IV Last administered on 06/05/18at 16:48; Start 06/05/18 at 16:00; Stop 06/05/18 at 23:59 ; Status DC Sodium Chloride 1,000 ml @ 80 mls/hr [id number] IV Last administered on at 01:24; Start 06/05/18 at 20:30 Insulin Human Lispro (HumaLOG) 0-5 UNITS TIDWMEALS SQ Last administered on 06/07at 17:22; Start 06/06/18 at 08:00 Dextrose (Dextrose 50%-Water Syringe) 12.5 gm PRN Q15MIN PRN IV SEE COMMENTS; Start 06/05/18 at 21:45 Docusate Sodium (Colace) 100 mg DAILY PO Last administered on 06/08/18at 08:39; Start 06/06/18 at 09:00 Rivaroxaban (Xarelto) 15 mg DAILYWSUP PO Last administered on 06/09/18at 17:48; Start 06/06/18 at 17:00 Tamsulosin HCl (Flomax) 0.4 mg HS PO Last administered on 06/09/18at 21:34; Start 06/06/18 at 21:00 Amlodipine Besylate (Norvasc) 2.5 mg DAILY PO Last administered on 06/08/18at 08 :39; Start 06/06/18 at 09:00; Stop 06/09/18 at 11:01; Status DC Atorvastatin Calcium (Lipitor) 10 mg QHS PO Last administered on 06/09/18at 21: 31; Start 06/06/18 at 21:00 Pregabalin (Lyrica) 150 mg QHS PO Last administered on 06/09/18at 21:32; Start 06/06/18 at 21:00 Sotalol HCl (Betapace) 120 mg DAILY PO Last administered on 06/10/18at 10:02; Start 06/06/18 at 09:00 Nitrofurantoin Macrocrystals (Macrobid) 100 mg BID PO ; Start 06/06/18 at 09:00 ; Status UNV Info (Anti-Coagulation Monitoring By Pharmacy) 1 each PRN DAILY PRN MC SEE COMMENTS Last administered on 06/09/18at 13:15; Start 06/06/18 at 08:30 Trimethoprim/ Sulfamethoxazole (Bactrim Ds) 0.5 tab BID PO Last administered on 06/10/18at 10:02; Start 06/06/18 at 10:00 Lactobacillus Rhamnosus (Culturelle) 1 cap BID PO Last administered on at 10:02; Start 06/06/18 at 21:00 Iohexol (Omnipaque 300 Mg/ml) 400 ml 1X ONCE PO ; Start 06/07/18 at 09:00; Stop 06/07/18 at 09:01; Status DC Info (CONTRAST GIVEN -- Rx MONITORING) 1 each PRN DAILY PRN MC SEE COMMENTS; Start 06/07/18 at 09:00; Stop 06/09/18 at 08:59; Status DC Clonidine HCl (Catapres) 0.1 mg PRN Q3HRS PRN PO HYPERTENSION, SEE COMMENTS; Start 06/08/18 at 21:30; Stop 06/09/18 at 11:01; Status DC Pantoprazole Sodium (Protonix) 40 mg DAILYAC PO Last administered on 06/10/18at 06:11; Start 06/09/18 at 09:00 Acetaminophen/ Hydrocodone Bitart (Lortab 5/325) 1 tab PRN Q4HRS PRN PO PAIN; Start 06/09/18 at 09:45 Amlodipine Besylate (Norvasc) 5 mg DAILY PO Last administered on 06/10/18at 10: 03; Start 06/09/18 at 11:30 Clonidine HCl (Catapres) 0.2 mg PRN Q3HRS PRN PO HYPERTENSION, SEE COMMENTS; Start 06/09/18 at 11:15 Pantoprazole Sodium (PROTONIX VIAL for IV PUSH) 40 mg 1X ONCE IVP Last administered on 06/09/18at 17:46; Start 06/09/18 at 15:30; Stop 06/09/18 at 15:31 ; Status DC Active Scripts Active Reported Sotalol (Sotalol Hcl) 80 Mg Tablet 120 Mg PO DAILY Mag-Oxide (Magnesium Oxide) 200 Mg Tablet 400 Mg PO BID Xarelto (Rivaroxaban) 15 Mg Tablet 15 Mg PO DAILY Amlodipine Besylate 2.5 Mg Tablet 2.5 Mg PO DAILY Docusate Sodium 100 Mg Capsule 100 Mg PO BID Cyanocobalamin Injection (Cyanocobalamin (Vitamin B-12)) 1,000 Mcg/1 Ml Vial 1 Ml IM QMONTH Not taken while in hosp. May resume at home as directed Vitamin D (Cholecalciferol (Vitamin D3)) 10,000 Unit Capsule 50,000 Unit PO WEEKLY Tamsulosin Hcl 0.4 Mg Cap.er.24h 1 Cap PO HS Last dose given: 05-15-14 9:00 p.m. Next dose due: tonight Lovastatin 20 Mg Tablet 1 Tab PO HS Last dose given: 05-15-14 Next dose due: tonight Lyrica (Pregabalin) 150 Mg Capsule 1 Cap PO HS Last dose given: 05-16-14 9:00 p.m. Next dose due: tonight Vitals/I & O Vital Sign - Last 24 Hours 06/09/18 06/09/18 06/09/18 06/09/18 15:00 19:00 20:00 23:00 Temp 97.8 97.7 98.2 97.8 97.7 98.2 Pulse 73 63 60 Resp 20 18 18 B/P (MAP) 157/88 (111) 135/74 (94) 167/86 (113) Pulse Ox 96 96 98 O2 Delivery Room Air Room Air Room Air Room Air 06/10/18 06/10/18 06/10/18 06/10/18 03:00 07:00 10:02 10:03 Temp 97.9 97.9 97.9 97.9 Pulse 61 60 60 60 Resp 18 16 B/P (MAP) 169/75 (106) 140/79 (99) 140/79 140/79 Pulse Ox 96 94 O2 Delivery Room Air Room Air O2 Flow Rate 06/10/18 11:00 Temp 97.8 97.8 Pulse 60 Resp 16 B/P (MAP) 147/75 (99) Pulse Ox 95 O2 Delivery Room Air Intake and Output 06/09/18 06/09/18 06/10/18 15:00 23:00 07:00 Output Total 1125 ml 500 ml Balance -1125 ml -500 ml MAYLIN VERAS MD Jun 10, 2018 14:52
[2018-06-10 15:00] VITALS: BP 156/72
[2018-06-10] MEDS: RIVAROXABAN 15 MG TABLET. PO SCH (18:04)
[2018-06-10 19:00] VITALS: BP 133/79
[2018-06-10] MEDS: ATORVASTATIN CALCIUM 10 MG TABLET. PO SCH (22:10)
[2018-06-10] MEDS: TAMSULOSIN 0.4 MG CAP.ER.24H. PO SCH (22:10)
[2018-06-10] MEDS: PREGABALIN 75 MG CAPSULE PO SCH (22:11)
[2018-06-10 23:17] VITALS: BP 169/74
[2018-06-11] MEDS: IV NORMAL SALINE 1000ML BAG 1,000 ML IV SCH (02:37)
[2018-06-11 03:00] VITALS: BP 131/67
[2018-06-11] MEDS: PANTOPRAZOLE 40 MG TABLET.DR. PO SCH (06:29)
[2018-06-11 07:00] VITALS: BP 167/74
[2018-06-11] MEDS: INSULIN LISPRO 300 UNITS/3 ML INSULN.PEN. SQ SCH ×2 (08:00→12:00)
--- NOTE | 2018-06-11 08:44 | PDOC ---
CHERRY BONE TRANSFER IRON OPERATOR 06/11/18 0844: SURGICAL PROGRESS NOTE Subjective tolerating diet + flatus full feeling lower abdomen after eating, however no significant pain Vital Signs Vital Signs Date Time Temp Pulse Resp B/P (MAP) Pulse Ox O2 Delivery O2 Flow Rate FiO2 06/11/18 07:00 97.9 60 18 167/74 (105) 96 Room Air 97.9 06/10/18 07:00 I&O Intake and Output 06/11/18 07:00 Intake Total 400 ml Output Total 675 ml Balance -275 ml Intake Oral 400 ml Output Urine Total 675 ml # Voids 2 General: Alert, Oriented X3, Cooperative, No acute distress Abdomen: Soft, No tenderness, Other (ND) Labs Laboratory Tests Test 06/09/18 11:45 06/09/18 13:00 06/09/18 16:47 06/09/18 20:46 Glucose (Fingerstick) 133 mg/dL (70-99) 105 mg/dL (70-99) 127 mg/dL (70-99) White Blood Count 7.4 x10^3/uL (4.0-11.0) Red Blood Count 4.97 x10^6/uL (4.30-5.70) Hemoglobin 14.3 g/dL (13.0-17.5) Hematocrit 44.1 % (39.0-53.0) Mean Corpuscular Volume 89 fL (79-100) Mean Corpuscular Hemoglobin 29 pg (25-35) Mean Corpuscular Hemoglobin Concent 33 g/dL (31-37) Red Cell Distribution Width 13.9 % (11.5-14.5) Platelet Count 190 x10^3/uL (140-400) Sodium Level 141 mmol/L (136-145) Potassium Level 4.1 mmol/L (3.5-5.1) Chloride Level 105 mmol/L (98-107) Carbon Dioxide Level 24 mmol/L (21-32) Anion Gap 12 (6-14) Blood Urea Nitrogen 8 mg/dL (8-26) Creatinine 1.6 mg/dL (0.7-1.3) Estimated GFR (Cockcroft-Gault) 42.0 Glucose Level 145 mg/dL (70-99) Calcium Level 8.4 mg/dL (8.5-10.1) Test 06/10/18 08:01 06/10/18 11:20 06/10/18 15:59 06/10/18 20:10 Glucose (Fingerstick) 97 mg/dL (70-99) 99 mg/dL (70-99) 133 mg/dL (70-99) 123 mg/dL (70-99) Test 06/11/18 07:49 Glucose (Fingerstick) 105 mg/dL (70-99) Laboratory Tests Test 06/10/18 11:20 06/10/18 15:59 06/10/18 20:10 06/11/18 07:49 Glucose (Fingerstick) 99 mg/dL (70-99) 133 mg/dL (70-99) 123 mg/dL (70-99) 105 mg/dL (70-99) Problem List Problems Medical Problems: (1) Small bowel obstruction Status: Acute Assessment/Plan stable no surgical plans tolerating diet work toward wa home BRENDON HILLIARD MD 06/11/18 0908: SURGICAL PROGRESS NOTE Assessment/Plan Patient seen and examined by me doing quite well tolerated diet abdomen is soft nondistended nontender patient has had flatus and bowel movement. Agree with discharge planning, and agree with Shahid assessment and plan CHERRY BONE APRN Jun 11, 2018 08:44 BRENDON HILLIARD MD Jun 11, 2018 09:08
[2018-06-11] MEDS: RIVAROXABAN 15 MG TABLET. PO SCH (08:47)
[2018-06-11] MEDS: DOCUSATE SODIUM 100 MG CAPSULE. PO SCH (08:47)
[2018-06-11] MEDS: amLODIPine BESYLATE 5 MG TABLET PO SCH (08:47)
[2018-06-11] MEDS: SOTALOL 80 MG TABLET. PO SCH (08:50)
[2018-06-11] MEDS ORDERED: ACETAMINOPHEN 325 MG TABLET. PO PRN (09:00)
[2018-06-11] MEDS ORDERED: MAGNESIUM OXIDE 400 MG TABLET PO SCH (09:30)
[2018-06-11 11:00] VITALS: BP 125/70
[2018-06-11] MEDS: ANTI-COAG MONITOR BY PHARMACY. MC PRN (11:48)
--- NOTE | 2018-06-11 12:34 | NUR ---
SS following up with discharge planning. PT/OT recommended group home unit at discharge. medical planner, Julieta Whitaker, met with pt to discuss group home unit. Pt declined group home unit and reported that he would discharge to home. Pt agreeable to home healthcare services at discharge.
[2018-06-11 15:00] VITALS: BP 167/71
--- NOTE | 2018-06-11 15:10 | DISCH ---
DISCHARGE WITH HOME HEALTH DISCHARGE INFORMATION: Discharge Date: Jun 11, 2018 Final Diagnosis: (1) Small bowel obstruction Status: Acute Condition on Discharge: Stable CODE STATUS: Code Status: Full HOME HEALTH: Face to Face: I certify this patient is under my care and that I, or a nurse practitioner or physician's bilingual administrative assistant working with me, had a face to face encounter that meets the physician face to face encounter requirements with this patient on 06/11/18. Physical Therapy For: Evalulation/Treatment Occupational Therapy For: Evaluation/Treatment POST DISCHARGE ORDERS: Activity Instructions for Disc: Activity as tolerated Weight Bearing Status after Di: Full weight bearing, As tolerated Bathing Instructions: Shower-keep dressing dry, No Tub Bath until see DIET AFTER DISCHARGE: ADA CHECKS AFTER DISCHARGE: Checks after discharge: Check blood sugar, ac/hs FOLLOW-UP: Follow up with: Dr. Pyle in a week or two TREATMENT/EQUIPMENT ORDERS: Adaptive Equipment Issued: None CERTIFICATION STATEMENT: Certification Statement: Certification Statement: Based on the above finding, I certify that this patient is confined to the home and needs intermittent nursing home care, physical therapy and/or speech therapy, or continues to need occupational therapy.~ This patient is under my care, and I have initiated the establishment of the plan of care.~ This patient will be followed by myself or a community physician who will periodically review the plan of care. Home Meds Reported Medications Sotalol Hcl (SOTALOL) 80 Mg Tablet, 120 MG PO DAILY, TAB 12/26/17 Magnesium Oxide (Mag-Oxide) 200 Mg Tablet, 400 MG PO BID, TAB 12/26/17 Rivaroxaban (XARELTO) 15 Mg Tablet, 15 MG PO DAILY, TAB 12/26/17 Amlodipine Besylate (AMLODIPINE BESYLATE) 2.5 Mg Tablet, 2.5 MG PO DAILY, TAB 12/26/17 Docusate Sodium (DOCUSATE SODIUM) 100 Mg Capsule, 100 MG PO BID for prevent constipation 05/16/14 Cyanocobalamin (Vitamin B-12) (CYANOCOBALAMIN INJECTION) 1,000 Mcg/1 Ml Vial, 1 ML IM QMONTH for Vit. B-12 supplement, #1 VIAL 3 Refills Not taken while in hosp. May resume at home as directed 05/12/14 Cholecalciferol (Vitamin D3) (VITAMIN D) 10,000 Unit Capsule, 42083 UNIT PO WEEKLY for Vit. D supplement 05/12/14 Tamsulosin Hcl (TAMSULOSIN HCL) 0.4 Mg Cap.er.24h, 1 CAP PO HS for frequent urination, #30 CAP 5 Refills Last dose given: 05-15-14 9:00 p.m. Next dose due: tonight 05/12/14 Lovastatin (LOVASTATIN) 20 Mg Tablet, 1 TAB PO HS for high cholesterol, #30 TAB 5 Refills Last dose given: 05-15-14 Next dose due: tonight 05/12/14 Pregabalin (LYRICA) 150 Mg Capsule, 1 CAP PO HS for nerve pain, #60 CAP 5 Refills Last dose given: 05-16-14 9:00 p.m. Next dose due: oseas 05/12/14 Fredy PYLE MD Jun 11, 2018 15:10
--- NOTE | 2018-06-11 15:16 | PDOC ---
Subjective: Subjective: Feeling okay - tolerating PO, passing gas, no stool. Sometimes abdomen feels "tight" but doesn't hurt. Thinks he might get to go home today. Objective: Vital Signs: Vital Signs Date Time Temp Pulse Resp B/P (MAP) Pulse Ox O2 Delivery O2 Flow Rate FiO2 06/11/18 11:00 98.9 60 18 125/70 (88) 95 Room Air 98.9 06/10/18 07:00 Labs: Laboratory Tests Test 06/10/18 15:59 06/10/18 20:10 06/11/18 07:49 06/11/18 11:37 Glucose (Fingerstick) 133 mg/dL 123 mg/dL 105 mg/dL 111 mg/dL Imaging: KUB 06/11 pending PE: GEN: NAD, up to chair LUNGS: CTAB HEART: RRR ABD: ?some distended, quiet BS, non-tender NEURO/PSYCH: A & O 3 A/P: Partial SBO - resolving -- Has DC orders, KUB pending. FATOUMATA LOVE Jun 11, 2018 15:16
--- NOTE | 2018-06-11 16:05 | NUR ---
[facility] at 1600, on fax number of [phone]. Fax complete. [facility] was also called on their main number [phone] and notified of the referral. Pt has requested home health instead of SNU upon discharge.
--- NOTE | 2018-06-11 16:12 | NUR ---
Discharge instructions were given to pt, teaching, and follow up info given. Pt is stable. KUB done and reviewed by Dr. Hodge before discharge. Pt will be leaving home with home health. Information was given to Clive. at bedside during discharge teaching. Pt will follow up with Dr. Hodge in 1 week. Pt's iv removed. No tele. All belongings left with pt at time of discharge. Pt left via wheelchair, escorted by [facility] at 1617.
--- NOTE | 2018-06-11 16:23 | RAD ---
AP view of the abdomen Clinical indications: Abdominal pain. Small bowel obstruction. Follow-up study. COMPARISON: June 10, 2018 FINDINGS/ IMPRESSION: There is persistent small bowel dilatation centrally which is mild in today's study and therefore there has been improvement. Overall improvement in small bowel obstructive pattern. GI contrast material is seen within the rectosigmoid region. Electronically signed by: Manuelito Romano MD (06/11/2018 4:20 PM) [facility]
--- NOTE | 2018-06-11 16:34 | PDOC3 ---
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 Villar is a 77 old [sex] who presented with abdominal pain and distension and felt to have a small bowel obstruction radiographically but with conservative treatment he started passing flatus and eventually stool and able to tolerate a soft diet. Imaging studies suggest an ongoing partial obstruction so he will remain at a soft diet and slowly advance as tolerated. [employer] he had some diarrhea and treated it with Imodium. He had been taken off metformin [employer] SCI[employer] TE[employer] due to diarrhea but was found to be hyperglycemic and had an A1C of 9.7 but his blood sugars were generally well controlled. His creatinine was 1.6 with an eGFR of 42 so resuming metformin is likely risky. He will follow up in the office in a week to determine needs for diabetes treatment, in the meantime he will control it with diet Patient History: Family history: Cardiovascular disease (situation) Family history: Gallbladder disease (situation) Family history: Hypertension (situation) Family history: Obesity (situation) Disposition home with HH for PT/OT due to deconditioning complicated by underlying OA, peripheral neuropathy. Diet ADA Scheduled Amlodipine Besylate (Amlodipine Besylate), 2.5 MG PO DAILY, (Reported) Cholecalciferol (Vitamin D3) (Vitamin D), 50,000 UNIT PO WEEKLY, (Reported) Cyanocobalamin (Vitamin B-12) (Cyanocobalamin Injection), 1 ML IM QMONTH, ( Reported) Docusate Sodium (Docusate Sodium), 100 MG PO BID, (Reported) Lovastatin (Lovastatin), 1 TAB PO HS, (Reported) Magnesium Oxide (Mag-Oxide), 400 MG PO BID, (Reported) Pregabalin (Lyrica), 1 CAP PO HS, (Reported) Rivaroxaban (Xarelto), 15 MG PO DAILY, (Reported) Sotalol Hcl (Sotalol), 120 MG PO DAILY, (Reported) Tamsulosin Hcl (Tamsulosin Hcl), 1 CAP PO HS, (Reported) Fredy PYLE MD Jun 11, 2018 16:34
[2018-06-11] MEDS ORDERED: DOCUSATE SODIUM 100 MG CAPSULE. PO SCH (21:00)
== END 2018-06-11 16:18 | disposition home health service (06) | DRG 388 ==
LOC: ER 13:11 → 4 NORTH 16:13
PROVIDERS: ADMIT Family Medicine; ATTEND Family Medicine
DX: K56.600 Partial intestinal obstruction, unspecified as to cause (principal); N17.0 Acute kidney failure with tubular necrosis; E44.0 Moderate protein-calorie malnutrition; N18.9 Chronic kidney disease, unspecified; I12.9 Hypertensive chronic kidney disease with stage 1 through stage 4 chronic kidney disease, or unspecified chronic kidney disease; E11.22 Type 2 diabetes mellitus with diabetic chronic kidney disease; E11.42 Type 2 diabetes mellitus with diabetic polyneuropathy; E11.65 Type 2 diabetes mellitus with hyperglycemia; E78.5 Hyperlipidemia, unspecified; I25.10 Atherosclerotic heart disease of native coronary artery without angina pectoris; K21.9 Gastro-esophageal reflux disease without esophagitis; I48.91 Unspecified atrial fibrillation; M19.90 Unspecified osteoarthritis, unspecified site; M41.9 Scoliosis, unspecified; N40.0 Benign prostatic hyperplasia without lower urinary tract symptoms; Z82.49 Family history of ischemic heart disease and other diseases of the circulatory system; Z96.659 Presence of unspecified artificial knee joint; Z95.0 Presence of cardiac pacemaker; Z88.0 Allergy status to penicillin
CPT/HCPCS: 36415; 74018; 74021; 74022; 74176; 74250; 80048; 80053; 81001; 82962; 83036; 83605; 83690; 85025; 85027; 85610; 85730; 87086; 93005; 96360; C9113; J1815; J7030; J7040; 97110; 97116; 97530; 97535; 99285-25